=== PATIENT | male | born 1940 | race Caucasian/White ===

== ENCOUNTER → 2021-10-31 15:35 | Outpatient (BNVA) | payer MEDICARE, SELFPAY | PROVIDERS: PCP Internal Medicine; Visit Provider Surgery | DX: H93.90 Unspecified disorder of ear, unspecified ear (principal) | CPT/HCPCS: 99202 ==

== ENCOUNTER 2021-11-14 11:45 | Outpatient (REF) | payer MEDICARE, SELFPAY ==
[2021-11-14 11:57] VITALS: BP 143/67; PULSE 88; RESP 16; TEMP 36.2; O2SAT 96
[2021-11-14 11:58] VITALS: BMI 32.3
--- NOTE | 2021-11-14 12:36 | P.OP_ITS ---
Operative Note Operative Note Date of Service: 11/14/21 Narrative: Preop diagnosis: Right ear skin lesion Postop diagnose: Right ear skin lesion Procedure: Excision of right ear skin lesion, under local anesthesia Surgeon: Sameer Morin MD The patient is a 81year-old male with with an elevated skin lesion on the area behind the right external ear measuring about 1.5 cm. This was lobulated and Smooth. He understood technique of excision under local anesthesia. He was aw are of the risks, benefits, and alternatives Brought to the minor procedure room. He was placed supine with the head turned to the left to expose the anteriorly to expose the posterior surface and the lesion. This area was prepped and draped. Lidocaine 1% was used for local anesthesia. I made an elliptical incision around this skin lesion using a blade 15. This was carried down through the full-thickness skin and part of subcutaneous layer to excise the entire skin lesion. This was sent as specimen. I closed the incision with multiple Prolene 4-0 interrupted sutures. There was good hemostasis at the end. Dressings were applied. The procedure was then completed. The patient tolerated procedure well. There were no complication noted. He will be seen in the office for follow-up for removal of sutures.
[2021-11-14 12:37] VITALS: BP 121/63; PULSE 77; RESP 16; O2SAT 95
== END 2021-11-14 11:46 | disposition home or self-care (01) ==
LOC: HO.MS 11:45
PROVIDERS: PCP Internal Medicine; Visit Provider Surgery
PROC: (CPT 11442; principal; 2021-11-14 12:10)
DX: L91.8 Other hypertrophic disorders of the skin (principal); L82.1 Other seborrheic keratosis
CPT/HCPCS: 11442; 88305

== ENCOUNTER → 2021-11-28 08:46 | Outpatient (BNVA) | payer MEDICARE, SELFPAY | PROVIDERS: PCP Internal Medicine; Visit Provider Surgery | DX: Z09 Encounter for follow-up examination after completed treatment for conditions other than malignant neoplasm (principal); Z87.2 Personal history of diseases of the skin and subcutaneous tissue | CPT/HCPCS: 99212 ==

== ENCOUNTER 2023-01-28 07:34 | Emergency (ER) | payer MEDICARE, SELFPAY ==
--- NOTE | ~2023-01-28 | XR_ITS ---
EXAMINATION: XR CHEST CLINICAL INFORMATION: Shortness of breath COMPARISON: Previous chest x-ray January 2020 TECHNIQUE: Frontal view of the chest was obtained. FINDINGS: The cardiac and mediastinal contours are stable. The lungs are clear. No pleural effusion or pneumothorax. Curvature of the lower thoracic spine to the right and degenerative changes. XR/XR chest 1V IMPRESSION: No evidence for acute disease in the chest.
--- NOTE | 2023-01-28 07:35 | ECG_ITS ---
Test Reason : heart palpitations Blood Pressure : / mmHG Vent. Rate : 069 BPM Atrial Rate : 069 BPM P-R Int : 200 ms QRS Dur : 124 ms QT Int : 422 ms P-R-T Axes : 066 045 047 degrees QTc Int : 452 ms Artifact in tracing Normal sinus rhythm Right bundle branch block Abnormal ECG When compared with ECG of 14-FEB-2020 00:37, No significant changes seen Referred By: Generic ED Physician Electronically Signed By:SANDRA LAST
[2023-01-28 07:38] VITALS: BP 126/76; PULSE 75; RESP 16; TEMP 36.1; O2SAT 94; BMI 32.6
--- NOTE | 2023-01-28 08:02 | ED.GENADULT ---
HPI - General Adult General Chief complaint: General Medical Stated complaint: Heart palpitations Time Seen by Provider: 01/28/23 08:01 Source: patient and family (daughter) Mode of arrival: ambulatory Limitations: no limitations History of Present Illness HPI narrative: Patient is an 82 year old assigned male at with a history of BPH, HTN, and coronary disease presenting to the emergency department today with intermittent palpitations and increased worry. Patient states that lately, he has been feeling more excited and feeling palpitations. Patient states that he has a trip to [place] coming up today and that has been concerning him. Patient denies any dizziness, lightheadedness, abdominal pain, nausea, vomiting, fever, chills, blurry vision, double vision, loss of vision, chest pain, difficulty breathing, shortness of breath, back pain, night sweats, pain with urination, increased urinary frequency, increased urinary urgency, blood in his urine or stool, syncope or a near syncopal episode, recent trauma or falls, bowel incontinence, bladder incontinence, bowel retention, bladder retention, or any other complaints at this time. Onset (ago): week(s) (1) Severity: mild Relieving factors: none Exacerbating factors: none Associated symptoms: denies other symptoms Treatments prior to arrival: none Related Data Home Medications Medication Instructions Recorded Confirmed enalapril maleate 2.5 mg tablet 2.5 mg PO DAILY 10/31/21 10/31/21 metoprolol tartrate 25 mg tablet 25 mg PO BID 10/31/21 10/31/21 omeprazole 40 mg capsule,delayed 40 mg PO DAILY 10/31/21 10/31/21 release pravastatin 80 mg tablet 80 mg PO DAILY 10/31/21 10/31/21 tamsulosin 0.4 mg capsule 0.4 mg PO DAILY 10/31/21 10/31/21 Allergies Allergy/AdvReac Type Severity Reaction Status Date / Time codeine [CODEINE] Allergy Severe UNKNOWN Verified 11/28/21 08:56 atorvastatin [From LIPITOR] AdvReac Intermediate Muscle Verified 11/28/21 08:56 cramps doxycycline [DOXYCYCLINE] AdvReac Intermediate Gastrointestinal Verified 11/28/21 08:56 Upset Review of Systems Constitutional: Constitutional: Reports no additional constitutional complaints, Denies chills, Denies fever(s) and Denies night sweats Eyes: Eyes: Reports no additional eye complaints, Denies blurry vision, Denies change in vision, Denies diplopia, Denies eye discharge, Denies loss of vision and Denies eye pain ENT: Denies dizziness Cardiovascular: Cardiovascular: Reports no additional cardiovascular complaints, Denies chest pain, Denies lightheadedness, Denies Loss of Consciousness, Reports palpitations and Denies dyspnea Respiratory: Respiratory: Reports no additional respiratory complaints and Denies dyspnea Gastrointestinal: Gastrointestinal: Reports no additional gastrointestinal complaints, Denies abdominal pain, Denies melena, Denies hematochezia, Denies change in bowel habits and Denies change in stool character Genitourinary: Genitourinary: Reports no additional male genitourinary complaints, Denies hematuria, Denies oliguria, Denies difficulty urinating, Denies dysuria, Denies urinary frequency, Denies urinary hesitancy, Denies urinary incontinence and Denies urinary urgency Musculoskeletal: Musculoskeletal: Reports no additional musculoskeletal complaints, Denies numbness and Denies tingling Neurologic: Denies dizziness, Denies loss of vision, Denies numbness and Denies tingling Psychiatric: Psychiatric: Reports no additional psychiatric complaints Endocrine: Endocrine: Reports no additional endocrine complaints and Reports palpitations Hematologic/Lymphatic: Hematologic/Lymphatic: Reports no additional hematologic/lymphatic complaints Allergic/Immunologic: Allergic/Immunologic: Reports no additional allergic/immunologic complaints PMFSH Past Medical History Attestation statement: The following information was validated with the patient. (all information validated with the patient's daughter) Source: old records reviewed, obtained from family (patient's daughter) and nursing notes reviewed Medical History BPH (benign prostatic hyperplasia) Coronary disease Ear lesion Hyperlipidemia Hypertension Surgical History History of cataract surgery History of heart artery stent History of prostate surgery (~2011) History of surgical removal of skin lesion (~11/14/21) Family History Family History Father Lung cancer Sister Colon cancer Mother Cancer of kidney Social History Social History Advance Directives: Yes Advance Directives Information Provided: Yes Advance Directives on File: No Physical Exam ED Vital Signs: Vital Signs - 24 hr 01/28/23 07:38 01/28/23 09:58 01/28/23 11:47 Temperature 96.9 F 97.8 F Pulse Rate 75 55 58 Respiratory Rate 16 15 18 Blood Pressure 126/76 103/44 L 98/32 L Pulse Oximetry 94 93 96 Oxygen Delivery Method Room Air Room Air Room Air BMI result Body Mass Index 32.6 Const General: cooperative, no acute distress, alert and awake Nutritional Appearance: well nourished Orientation/consciousness: patient oriented x3 Limitations: no limitations HENMT Head: Yes normal to inspection and Yes atraumatic Ears: hearing grossly normal bilaterally and external ears normal General nose exam: Normal external nose present, no nasal discharge noted and no epistaxis Face and sinus: Yes normal facial exam, No abrasion and No laceration Mouth: Normal oral and palatal mucosa present, no drooling and no muffled voice Eyes General: appearance normal, both eyes and all related structures Periorbital: periorbital findings normal Eyelids: Yes eyelids normal Conjunctivae: conjunctivae normal Pupils: Equal, round and reactive pupils present EOM: EOMs intact bilaterally Neck Neck: Yes normal visual inspection, Yes full ROM and Yes no lymphadenopathy Chest Chest palpation & inspection: normal inspection of the chest Resp Effort & Inspection: normal respiratory effort and able to speak in complete sentences Auscultation: clear to auscultation bilaterally Cardio Rate: regular rate Rhythm: regular rhythm GI Inspection: Yes normal to inspection Palpation (GI): Soft to palpation, not firm, nontender, no guarding and not rigid Neuro General: patient oriented x3 and moves all extremities Cranial nerves: Yes Equal, round and reactive pupils present Cognition (Neuro): normal cognition Motor exam (neuro): 5/5 motor strength present throughout Sensory Exam: Normal double simultaneous stimulation for sensation Coordination: [id number] test normal Extrem General: Yes normal to inspection, Yes full ROM and Yes capillary refill normal Psych Appearance: grossly normal Mental Status: mental status grossly normal Affect: normal affect Attitude: cooperative Thought process: Normal thought process present Thought content: Normal thought content present Insight: Good insight present (Psych) Medical Decision Making Medical Decision Making MDM Narrative: Patient is an 82 year old assigned male at with a history of HTN, BPH, and coronary disease presenting to the emergency department today with intermittent palpitations. Patient's physical exam was unremarkable. Patient's blood work was unremarkable. Patient's EKG was unremarkable. Patient's chest x-ray showed no acute process. I explained my physical exam findings as well as all test results to the patient and the patient's daughter. I answered all questions asked by the patient and the patient's daughter. I stressed the importance of the patient taking his medication as prescribed. I stressed the importance of the patient following up with his primary care provider. I stressed the importance of the patient returning to the emergency department immediately if his symptoms were to worsen or if he were to develop any dizziness, shortness of breath, difficulty breathing, chest pain, blurry vision, loss of vision, nausea, vomiting, abdominal pain, fever, chills, back pain, or any other complaints. Patient and the patient's daughter verbalized agreement and understanding with this treatment plan and discharge. Differential Diagnosis Differential Diagnoses: The differential diagnosis associated with the presentation includes palpitations, anxiety Admission/Observation Consideration of admission/observation: Escalation of care including admission/observation considered Had patient's work up been positive for a cardiopulmonary process, he would have been admitted. Lab Data MDM Lab Attestation statement: I reviewed the patient's lab results. 01/28/23 08:05 01/28/23 08:09 Labs: Lab Results 01/28/23 01/28/23 01/28/23 Range/Units 08:05 08:05 08:05 WBC 6.5 (4.8-10.8) X10*3/uL RBC 5.55 (4.60-5.80) X10*6/uL Hgb 16.7 (14.0-18.0) g/dl Hct 49.6 (42.0-52.0) % MCV 89.4 (80.0-98.0) fL MCH 30.1 (27.0-33.0) pg MCHC 33.7 (31.0-36.0) g/dl RDW 13.1 (11.0-16.0) % Plt Count 147 L (160-400) X10*3/uL MPV 10.2 (9.4-12.4) fL Immature Gran % (Auto) 0.3 (0.0-0.4) % Neut % (Auto) 63.9 (45-73) % Lymph % (Auto) 25.1 (20-40) % [place] % (Auto) 8.7 (2-11) % Eos % (Auto) 1.5 (0-4) % Baso % (Auto) 0.5 (0-2) % Lymph # (Auto) 1.6 (1.2-4.9) X10*3/uL [place] # (Auto) 0.6 (0.1-1.2) X10*3/uL Eos # (Auto) 0.1 (0.0-0.4) X10*3/uL Baso # (Auto) 0.0 (0.0-0.2) X10*3/uL Abs Immat Gran (auto) 0.02 (0.00-0.03) X10*3/uL Absolute Neuts (auto) 4.2 (2.0-8.3) x10*3/uL Absolute Nucleated RBC 0.000 (0.0-0.012) X10*3/uL Nucleated RBC % (auto) 0.0 (0.0-0.2) /100WBC PT 12.0 (10.0-13.1) SEC INR 1.0 (0.9-1.1) APTT (26.0-36.4) SEC Sodium (135-145) mmol/L Potassium (3.3-5.1) mmol/L Chloride (96-108) mmol/L Carbon Dioxide (22-29) mmol/L Anion Gap (12-20) BUN (9-16) mg/dL Creatinine (0.5-1.4) mg/dL Estim Creat Clear Calc Estimated GFR POC Glucose (60-115) mg/dL Random Glucose (60-115) mg/dL Calcium (8.4-10.2) mg/dL Total Bilirubin (0.0-1.0) mg/dL AST (5-37) U/L ALT (0-40) U/L Alkaline Phosphatase (39-117) U/L Troponin I High Sens 2.7 (<3.5-35.0) ng/L B-Natriuretic Peptide (<100) pg/mL Total Protein (6.5-8.0) g/dL Albumin (3.5-5.0) g/dL Influenza Type A (PCR) (Negative) Influenza Type B (PCR) (Negative) RSV RNA Qual (PCR) (Negative) SARS-CoV-2 RNA (RT-PCR) (Negative) 01/28/23 01/28/23 01/28/23 Range/Units 08:05 08:05 08:09 WBC (4.8-10.8) X10*3/uL RBC (4.60-5.80) X10*6/uL Hgb (14.0-18.0) g/dl Hct (42.0-52.0) % MCV (80.0-98.0) fL MCH (27.0-33.0) pg MCHC (31.0-36.0) g/dl RDW (11.0-16.0) % Plt Count (160-400) X10*3/uL MPV (9.4-12.4) fL Immature Gran % (Auto) (0.0-0.4) % Neut % (Auto) (45-73) % Lymph % (Auto) (20-40) % [place] % (Auto) (2-11) % Eos % (Auto) (0-4) % Baso % (Auto) (0-2) % Lymph # (Auto) (1.2-4.9) X10*3/uL [place] # (Auto) (0.1-1.2) X10*3/uL Eos # (Auto) (0.0-0.4) X10*3/uL Baso # (Auto) (0.0-0.2) X10*3/uL Abs Immat Gran (auto) (0.00-0.03) X10*3/uL Absolute Neuts (auto) (2.0-8.3) x10*3/uL Absolute Nucleated RBC (0.0-0.012) X10*3/uL Nucleated RBC % (auto) (0.0-0.2) /100WBC PT (10.0-13.1) SEC INR (0.9-1.1) APTT 32.2 (26.0-36.4) SEC Sodium 141 (135-145) mmol/L Potassium 4.3 (3.3-5.1) mmol/L Chloride 108 (96-108) mmol/L Carbon Dioxide 24 (22-29) mmol/L Anion Gap 13 (12-20) BUN 16 (9-16) mg/dL Creatinine 1.49 H (0.5-1.4) mg/dL Estim Creat Clear Calc 47.5 Estimated GFR 45 POC Glucose (60-115) mg/dL Random Glucose 191 H (60-115) mg/dL Calcium 9.1 (8.4-10.2) mg/dL Total Bilirubin 1.3 H (0.0-1.0) mg/dL AST 21 (5-37) U/L ALT 17 (0-40) U/L Alkaline Phosphatase 78 (39-117) U/L Troponin I High Sens (<3.5-35.0) ng/L B-Natriuretic Peptide (<100) pg/mL Total Protein 6.1 L (6.5-8.0) g/dL Albumin 3.9 (3.5-5.0) g/dL Influenza Type A (PCR) NEGATIVE (Negative) Influenza Type B (PCR) NEGATIVE (Negative) RSV RNA Qual (PCR) NEGATIVE (Negative) SARS-CoV-2 RNA (RT-PCR) NEGATIVE (Negative) 01/28/23 01/28/23 Range/Units 08:09 08:22 WBC (4.8-10.8) X10*3/uL RBC (4.60-5.80) X10*6/uL Hgb (14.0-18.0) g/dl Hct (42.0-52.0) % MCV (80.0-98.0) fL MCH (27.0-33.0) pg MCHC (31.0-36.0) g/dl RDW (11.0-16.0) % Plt Count (160-400) X10*3/uL MPV (9.4-12.4) fL Immature Gran % (Auto) (0.0-0.4) % Neut % (Auto) (45-73) % Lymph % (Auto) (20-40) % [place] % (Auto) (2-11) % Eos % (Auto) (0-4) % Baso % (Auto) (0-2) % Lymph # (Auto) (1.2-4.9) X10*3/uL [place] # (Auto) (0.1-1.2) X10*3/uL Eos # (Auto) (0.0-0.4) X10*3/uL Baso # (Auto) (0.0-0.2) X10*3/uL Abs Immat Gran (auto) (0.00-0.03) X10*3/uL Absolute Neuts (auto) (2.0-8.3) x10*3/uL Absolute Nucleated RBC (0.0-0.012) X10*3/uL Nucleated RBC % (auto) (0.0-0.2) /100WBC PT (10.0-13.1) SEC INR (0.9-1.1) APTT (26.0-36.4) SEC Sodium (135-145) mmol/L Potassium (3.3-5.1) mmol/L Chloride (96-108) mmol/L Carbon Dioxide (22-29) mmol/L Anion Gap (12-20) BUN (9-16) mg/dL Creatinine (0.5-1.4) mg/dL Estim Creat Clear Calc Estimated GFR POC Glucose 184 H (60-115) mg/dL Random Glucose (60-115) mg/dL Calcium (8.4-10.2) mg/dL Total Bilirubin (0.0-1.0) mg/dL AST (5-37) U/L ALT (0-40) U/L Alkaline Phosphatase (39-117) U/L Troponin I High Sens (<3.5-35.0) ng/L B-Natriuretic Peptide 16 (<100) pg/mL Total Protein (6.5-8.0) g/dL Albumin (3.5-5.0) g/dL Influenza Type A (PCR) (Negative) Influenza Type B (PCR) (Negative) RSV RNA Qual (PCR) (Negative) SARS-CoV-2 RNA (RT-PCR) (Negative) Independent Interpretation I performed an independent interpretation of an: EKG and Plain X-Ray Interpretation: Vent. Rate: 069 BPM ? ? Atrial Rate: 069 BPM P-R Int: 200 ms? QRS Dur: 124 ms QT Int: 422 ms ? ? ? P-R-T Axes: 066 045 047 degrees QTc Int: 452 ms ? Sinus rhythm with Fusion complexes Right bundle branch block Abnormal ECG When compared with ECG of 14-FEB-2020 00:37, Fusion complexes are now Present DD/ [id number] My interpretation is in agreement with the radiologist's impression of this imaging study. EXAMINATION: XR CHEST CLINICAL INFORMATION: Shortness of breath COMPARISON: Previous chest x-ray January 2020 TECHNIQUE: Frontal view of the chest was obtained. FINDINGS: The cardiac and mediastinal contours are stable. The lungs are clear. No pleural effusion or pneumothorax. Curvature of the lower thoracic spine to the right and degenerative changes. XR/XR chest 1V IMPRESSION: No evidence for acute disease in the chest. ? Dictated By: Roxie Dee MD Signed By: Electronically signed by Roxie Dee MD 01/28/23 0919 Independent Historian Clinical information obtained from an independent historian. History obtained from or confirmed by: Other (patient's daughter) Discharge Plan Discharge Clinical Impression: Palpitation Patient Disposition: Home, Self-Care Instructions: Heart Palpitations (DC) Additional Instructions: Follow up with your primary care provider. Return to the emergency department immediately if your symptoms worsen or if you develop any dizziness, shortness of breath, difficulty breathing, chest pain, blurry vision, loss of vision, nausea, vomiting, abdominal pain, fever, chills, back pain, or any other complaints. Prescriptions: No Action metoprolol tartrate 25 mg tablet 25 mg PO BID omeprazole 40 mg capsule,delayed release(DR/EC) 40 mg PO DAILY pravastatin 80 mg tablet 80 mg PO DAILY tamsulosin 0.4 mg capsule 0.4 mg PO DAILY enalapril maleate 2.5 mg tablet 2.5 mg PO DAILY Referrals: Sameer Banegas MD [Primary Care Provider] - Interventions: ED Discharge Assessment Last Done: 01/28/23 12:30 Discharge Date/Time: 01/28/23 12:37 Print Language: Romansh
[2023-01-28 08:14] LABS: MANUAL DIFF FLAG NO
[2023-01-28 08:19] LABS: Basophils Percent Auto 0.5 % (0-2); Eosinophils Absolute Auto 0.1 X10*3/uL (0.0-0.4); Eosinophils Percent Auto 1.5 % (0-4); Hematocrit 49.6 % (42.0-52.0); Hemoglobin 16.7 g/dl (14.0-18.0); Imm Gran Abs Auto 0.02 X10*3/uL (0.00-0.03); Imm Gran Pct Auto 0.3 % (0.0-0.4); Lymphocytes Absolute Auto 1.6 X10*3/uL (1.2-4.9); Lymphocytes Percent Auto 25.1 % (20-40); Mean Corpuscular HGB Conc 33.7 g/dl (31.0-36.0); Mean Corpuscular Hemoglobin 30.1 pg (27.0-33.0); Mean Corpuscular Volume 89.4 fL (80.0-98.0); Mean Platelet Volume 10.2 fL (9.4-12.4); Monocytes Absolute Auto 0.6 X10*3/uL (0.1-1.2); Monocytes Percent Auto 8.7 % (2-11); Neutrophils Absolute Auto 4.2 x10*3/uL (2.0-8.3); Neutrophils Percent Auto 63.9 % (45-73); Platelet Count 147 X10*3/uL (160-400); Red Blood Count 5.55 X10*6/uL (4.60-5.80); Red Cell Distribution Width 13.1 % (11.0-16.0); White Blood Count 6.5 X10*3/uL (4.8-10.8)
[2023-01-28 08:23] LABS: Partial Thromboplastin Time 32.2 SEC (26.0-36.4)
--- NOTE | 2023-01-28 08:23 | MHC.EDTECH ---
POC of 184 completed and RN aware
[2023-01-28 08:27] LABS: Glucose, Whole Blood 184 mg/dL (60-115)
[2023-01-28 08:36] LABS: Troponin-I High Sensitivity 2.7 ng/L (<3.5-35.0)
[2023-01-28 08:49] LABS: B Type Natriuretic Peptide 16 pg/mL (<100)
[2023-01-28 09:55] LABS: Influenza A PCR NEGATIVE (Negative); Influenza B PCR NEGATIVE (Negative); Resp Syncy Virus RNA Qual PCR NEGATIVE (Negative); SARS COV2 PCR INHOUSE NEGATIVE (Negative)
[2023-01-28 09:58] VITALS: BP 103/44; PULSE 55; RESP 15; O2SAT 93
[2023-01-28 11:47] VITALS: BP 98/32; PULSE 58; RESP 18; TEMP 36.6; O2SAT 96
[2023-01-28 11:59] LABS: Alanine Aminotransferase 17 U/L (0-40); Albumin Level 3.9 g/dL (3.5-5.0); Alkaline Phosphatase 78 U/L (39-117); Anion Gap 13 (12-20); Aspartate Amino Transferase 21 U/L (5-37); Bilirubin Total 1.3 mg/dL (0.0-1.0); Blood Urea Nitrogen 16 mg/dL (9-16); Calcium 9.1 mg/dL (8.4-10.2); Carbon Dioxide 24 mmol/L (22-29); Chloride 108 mmol/L (96-108); Creatinine Clr Calc Pharmacy 47.5; Estimated Glomerular Filt Rate 45; Glucose Random 191 mg/dL (60-115); Potassium 4.3 mmol/L (3.3-5.1); Sodium 141 mmol/L (135-145); Total Protein 6.1 g/dL (6.5-8.0)
== END 2023-01-28 12:37 | disposition home or self-care (01) ==
PROVIDERS: Physician Assistant Medical; Emergency Provider Emergency Medicine; PCP Internal Medicine
DX: R00.2 Palpitations (principal); Z20.822 Contact with and (suspected) exposure to COVID-19; I45.10 Unspecified right bundle-branch block; I10 Essential (primary) hypertension; E78.5 Hyperlipidemia, unspecified; Z79.02 Long term (current) use of antithrombotics/antiplatelets; Z79.899 Other long term (current) drug therapy
CPT/HCPCS: 0241U; 36415; 71045; 80053; 82947; 83880; 84484; 85025; 85610; 85730; 93005; 99283

== ENCOUNTER 2023-02-03 08:37 | Outpatient (REF) | payer MEDICARE, SELFPAY ==
[2023-02-03 11:52] LABS: Estimated Average Glucose 163 mg/dL; Hemoglobin A1c % 7.3 %
[2023-02-03 12:04] LABS: Anion Gap 12 (12-20); Blood Urea Nitrogen 21 mg/dL (9-16); Calcium 8.8 mg/dL (8.4-10.2); Carbon Dioxide 30 mmol/L (22-29); Chloride 102 mmol/L (96-108); Estimated Glomerular Filt Rate 40; Glucose Random 145 mg/dL (60-115); Magnesium 1.6 mg/dL (1.6-2.6); Potassium 4.5 mmol/L (3.3-5.1); Sodium 139 mmol/L (135-145)
[2023-02-03 12:05] LABS: Creatinine Urine 63.06 mg/dL; Total Protein Urine Random < 7 mg/dL (<12)
[2023-02-03 12:10] LABS: Creatinine Urine 62.89 mg/dL; Microalbum/Creatinine Ratio Ur 17.4 ug/mg cr
[2023-02-03 12:20] LABS: Free T4 (Free Thyroxine) 0.91 ng/dL (0.71-1.85)
== END 2023-02-03 08:38 | disposition home or self-care (01) ==
LOC: HO.WFDLDS 08:37
PROVIDERS: Absent Provider Internal Medicine; Visit Provider Internal Medicine Nephrology
DX: I12.9 Hypertensive chronic kidney disease with stage 1 through stage 4 chronic kidney disease, or unspecified chronic kidney disease (principal); E11.22 Type 2 diabetes mellitus with diabetic chronic kidney disease; N18.31 Chronic kidney disease, stage 3a; R00.2 Palpitations
CPT/HCPCS: 36415; 80048; 82043; 83036; 83735; 84156; 84439; 84443

== ENCOUNTER 2023-05-30 11:28 | Outpatient (REF) | payer MEDICARE, SELFPAY ==
[2023-05-30 15:00] LABS: Estimated Average Glucose 151 mg/dL; Hemoglobin A1c % 6.9 % (<6.0)
[2023-05-30 15:09] LABS: Anion Gap 13 (12-20); Blood Urea Nitrogen 14 mg/dL (9-16); Calcium 9.6 mg/dL (8.4-10.2); Carbon Dioxide 25 mmol/L (22-29); Chloride 106 mmol/L (96-108); Estimated Glomerular Filt Rate 48; Glucose Random 119 mg/dL (60-115); Potassium 4.1 mmol/L (3.3-5.1); Sodium 140 mmol/L (135-145)
== END 2023-05-30 11:29 | disposition home or self-care (01) ==
LOC: HO.WFDLDS 11:28
PROVIDERS: Visit Provider Internal Medicine
DX: E11.22 Type 2 diabetes mellitus with diabetic chronic kidney disease (principal); I12.9 Hypertensive chronic kidney disease with stage 1 through stage 4 chronic kidney disease, or unspecified chronic kidney disease; N18.9 Chronic kidney disease, unspecified
CPT/HCPCS: 36415; 80048; 83036

== ENCOUNTER 2023-09-25 11:08 | Outpatient (REF) | payer MEDICARE, SELFPAY | END 2023-09-25 11:09 | disposition home or self-care (01) | LOC: HO.WFDLDS 11:08 | PROVIDERS: Visit Provider Internal Medicine | DX: Z13.89 Encounter for screening for other disorder (principal) ==

== ENCOUNTER 2023-09-25 11:29 | Outpatient (REF) | payer MEDICARE, SELFPAY | END 2023-09-25 11:30 | disposition home or self-care (01) | LOC: HO.WFDLDS 11:29 | PROVIDERS: Visit Provider Internal Medicine Nephrology | DX: N18.30 Chronic kidney disease, stage 3 unspecified (principal) | CPT/HCPCS: 36415; 80051; 80053; 82043; 82306; 82310; 82565; 82570; 83036; 84100; 84156; 84520; 85025 ==

== ENCOUNTER 2023-10-01 09:34 | Outpatient (AMB) | payer MEDICARE, SELFPAY ==
[2023-10-01 09:55] VITALS: BP 102/60; PULSE 66; BMI 31.2
--- NOTE | 2023-10-01 09:55 | HO.NEPHOV ---
HPI HPI Comments History of Present Illness Details Sourav is a 83-year-old delightful gentleman whom had the pleasure of seeing in follow-up of his chronic kidney disease. He has lost some weight. He is tolerating all his current medications including enalapril. He is on metformin and his blood sugar is better. He denies nausea vomiting, diarrhea, chest pain, shortness of breath, pedal edema, dizziness or orthostatic symptoms. He tries to maintain good hydration. All other systems were reviewed and were negative. [facility] Medical History BPH (benign prostatic hyperplasia) Coronary disease Ear lesion Hyperlipidemia Hypertension Surgical History History of surgical removal of skin lesion (~11/14/21) History of cataract surgery History of heart artery stent History of prostate surgery (~2011) Family History Father Lung cancer Sister Colon cancer Mother Cancer of kidney Vital Signs 10/01/23 09:55 Height 5 ft 10 in Weight 217 lb 4 oz BMI 31.2 BP 102/60 Blood Pressure Location Lt brachial Position Sitting Pulse 66 Pulse Source Pulse Oximeter Physical Exam Vital Signs: Last Vital Signs Pulse 66 10/01/23 09:55 BP 102/60 10/01/23 09:55 BMI result Body Mass Index 31.2 Const General: comfortable and no acute distress Orientation/consciousness: patient oriented x3 HEENT Head: Yes normocephalic Mouth: Normal oral and palatal mucosa present Eyes EOM: EOMs intact bilaterally Neck Neck: Yes supple Resp Auscultation: clear to auscultation bilaterally Cardio Jugular venous distension: no JVD Rate: regular rate GI Palpation (GI): Soft to palpation Auscultation: normal bowel sounds General: Yes no CVA tenderness Back/Spine/Pelvis Back: no CVA tenderness Skin General skin exam: no rashes or lesions noted Neuro General: patient oriented x3 and moves all extremities Extrem General: Yes no pedal edema Assessment & Plan Assessment & Plan (1) CKD (chronic kidney disease) stage 3, GFR 30-59 ml/min: Code(s): N18.30 - Chronic kidney disease, stage 3 unspecified Qualifiers: Chronic kidney disease stage 3 subtype: stage 3a (GFR 45-59) Qualified Code(s): N18.31 - Chronic kidney disease, stage 3a (2) Hypertension: Code(s): I10 - Essential (primary) hypertension Qualifiers: Hypertension type: primary hypertension Qualified Code(s): I10 - Essential (primary) hypertension Plan Zeferino has chronic kidney disease stage 3 with stable renal function. He has 1 small kidney. He likely has renal artery stenosis on that side given coronary artery disease and history of peripheral arterial disease. He has no significant protein in the urine. His blood pressure is at goal. He is tolerating current dose of enalapril. He avoids nonsteroidal anti-inflammatory medications and maintain good hydration. We could consider him for a low-dose Farxiga given history of coronary artery disease, CKD and diabetes. I did not make any medication changes today. No prescription refills were requested. All questions answered. Follow-up given. Orders: Orders Protein Creatinine Ratio, Ur Today I10 - Essential (primary) hypertension, N18.30 - Chronic kidney disease, stage 3 unspecified Creatinine Today I10 - Essential (primary) hypertension, N18.30 - Chronic kidney disease, stage 3 unspecified Electrolytes Today I10 - Essential (primary) hypertension, N18.30 - Chronic kidney disease, stage 3 unspecified Blood Urea Nitrogen Today I10 - Essential (primary) hypertension, N18.30 - Chronic kidney disease, stage 3 unspecified Coding Level of Care Code Est Pt Level 4 (02766) Diagnoses Stage 3a chronic kidney disease N18.31 Chronic kidney disease stage 3 subtype: stage 3a (GFR 45-59) Primary hypertension I10 Hypertension type: primary hypertension Results Reviewed Nephrology Results: Hgb 16.2 g/dl (14.0-18.0) 09/25/23 WBC 7.0 X10*3/uL (4.8-10.8) 09/25/23 Plt Count 133 X10*3/uL (160-400) L 09/25/23 Sodium 143 mmol/L (135-145) 09/25/23 Potassium 3.9 mmol/L (3.3-5.1) 09/25/23 Chloride 104 mmol/L (96-108) 09/25/23 Carbon Dioxide 28 mmol/L (22-29) 09/25/23 BUN 13 mg/dL (9-16) 09/25/23 Creatinine 1.26 mg/dL (0.5-1.4) 09/25/23 Calcium 9.4 mg/dL (8.4-10.2) 09/25/23 Phosphorus 2.6 mg/dL (2.7-4.5) L 09/25/23 Urine Protein TRACE (NEG - TRACE) 02/14/20 Urine Creatinine 71.80 mg/dL 09/25/23 Protein/Creatinin Ratio 0.17 (<0.2) 09/25/23
== END 2023-10-01 10:42 | disposition home or self-care (01) ==
PROVIDERS: PCP Internal Medicine; Visit Provider Internal Medicine Nephrology
DX: N18.31 Chronic kidney disease, stage 3a (principal); I10 Essential (primary) hypertension
CPT/HCPCS: 99214

== ENCOUNTER → 2023-10-01 09:34 | Outpatient (BNVA) | payer MEDICARE, SELFPAY | PROVIDERS: PCP Internal Medicine; Visit Provider Internal Medicine Nephrology | DX: I12.9 Hypertensive chronic kidney disease with stage 1 through stage 4 chronic kidney disease, or unspecified chronic kidney disease (principal); N18.31 Chronic kidney disease, stage 3a | CPT/HCPCS: 99212 ==

== ENCOUNTER 2024-02-02 10:41 | Outpatient (REF) | payer MEDICARE, SELFPAY ==
[2024-02-02 14:59] LABS: Estimated Average Glucose 140 mg/dL; Hemoglobin A1c % 6.5 % (<6.0)
[2024-02-02 15:07] LABS: Creatinine Urine 102.12 mg/dL; Creatinine Urine 102.38 mg/dL; Microalbum/Creatinine Ratio Ur 88.8 ug/mg cr (<30); Protein/Creatinine Ratio, Ur 0.22 (<0.2); Total Protein Urine Random 22 mg/dL (<12)
[2024-02-02 15:08] LABS: Anion Gap 12 (12-20); Blood Urea Nitrogen 14 mg/dL (9-16); Carbon Dioxide 31 mmol/L (22-29); Chloride 104 mmol/L (96-108); Estimated Glomerular Filt Rate 56; Potassium 4.3 mmol/L (3.3-5.1); Sodium 143 mmol/L (135-145)
[2024-02-02 15:11] LABS: Anion Gap 12 (12-20); Blood Urea Nitrogen 14 mg/dL (9-16); Calcium 9.5 mg/dL (8.4-10.2); Carbon Dioxide 31 mmol/L (22-29); Chloride 104 mmol/L (96-108); Estimated Glomerular Filt Rate 56; Glucose Random 138 mg/dL (60-115); Potassium 4.3 mmol/L (3.3-5.1); Sodium 143 mmol/L (135-145)
== END 2024-02-02 10:42 | disposition home or self-care (01) ==
LOC: HO.WFDLDS 10:41
PROVIDERS: Internal Medicine; Visit Provider Internal Medicine Nephrology
DX: E11.9 Type 2 diabetes mellitus without complications (principal); N18.30 Chronic kidney disease, stage 3 unspecified; I10 Essential (primary) hypertension
CPT/HCPCS: 36415; 80048; 80051; 82043; 82565; 82570; 83036; 84156; 84520

== ENCOUNTER 2024-02-11 08:25 | Outpatient (REF) | payer MEDICARE, SELFPAY | END 2024-02-11 08:26 | disposition home or self-care (01) | LOC: HO.SH 08:25 | PROVIDERS: Visit Provider Internal Medicine | DX: Z01.118 Encounter for examination of ears and hearing with other abnormal findings (principal); H90.3 Sensorineural hearing loss, bilateral | CPT/HCPCS: 92557 ==

== ENCOUNTER 2024-04-21 11:44 | Outpatient (AMB) | payer MEDICARE, SELFPAY ==
[2024-04-21 11:47] VITALS: BP 122/78; PULSE 76; O2SAT 96; BMI 31.6
--- NOTE | 2024-04-21 11:47 | HO.NEPHOV_ITS ---
Vital Signs 04/21/24 11:47 Height 5 ft 10 in Weight 220 lb BMI 31.6 BP 122/78 Blood Pressure Location Rt brachial Position Sitting Pulse 76 Pulse Source Pulse Oximeter Pulse Oximetry (%) 96 Oxygen Delivery Method Room Air Intake Visit Reasons: CKD/ Conf Ring Stamper Required: No Accompanied by: Self / Same As Patient Allergies codeine [CODEINE] Allergy (Severe, Verified 04/21/24 11:49) UNKNOWN atorvastatin [From LIPITOR] Adverse Reaction (Intermediate, Verified 04/21/24 11:49) Muscle cramps doxycycline [DOXYCYCLINE] Adverse Reaction (Intermediate, Verified 04/21/24 11:49) Gastrointestinal Upset HPI Comments Details: Sourav is a 83-year-old delightful gentleman whom had the pleasure of seeing in follow-up of his chronic kidney disease. He has lost some weight. He is tolerating all his current medications including enalapril. He is on metformin and his blood sugar is better. He denies nausea vomiting, diarrhea, chest pain, shortness of breath, pedal edema, dizziness or orthostatic symptoms. He tries to maintain good hydration. All other systems were reviewed and were negative [facility] Medical History BPH (benign prostatic hyperplasia) Coronary disease Ear lesion Hyperlipidemia Hypertension Surgical History History of surgical removal of skin lesion (~11/14/21) History of cataract surgery History of heart artery stent History of prostate surgery (~2011) Family History Father Lung cancer Sister Colon cancer Mother Cancer of kidney Review of Systems Const All systems reviewed & are unremarkable except as noted in HPI and below Physical Exam Vital Signs: Last Vital Signs Pulse 76 04/21/24 11:47 BP 122/78 04/21/24 11:47 Pulse Ox 96 04/21/24 11:47 Oxygen Delivery Method Room Air 04/21/24 11:47 BMI result Body Mass Index 31.6 Const General: comfortable and no acute distress Orientation/consciousness: patient oriented x3 HEENT Head: Yes normocephalic Mouth: Normal oral and palatal mucosa present Eyes EOM: EOMs intact bilaterally Neck Neck: Yes supple Resp Auscultation: clear to auscultation bilaterally Cardio Jugular venous distension: no JVD Rate: regular rate GI Palpation (GI): Soft to palpation Auscultation: normal bowel sounds General: Yes no CVA tenderness Back/Spine/Pelvis Back: no CVA tenderness Skin General skin exam: no rashes or lesions noted Neuro General: patient oriented x3 and moves all extremities Extrem General: Yes no pedal edema Results Reviewed Nephrology Results: Hgb 16.2 g/dl (14.0-18.0) 09/25/23 WBC 7.0 X10*3/uL (4.8-10.8) 09/25/23 Plt Count 133 X10*3/uL (160-400) L 09/25/23 Sodium 143 mmol/L (135-145) 02/02/24 Potassium 4.3 mmol/L (3.3-5.1) 02/02/24 Chloride 104 mmol/L (96-108) 02/02/24 Carbon Dioxide 31 mmol/L (22-29) H 02/02/24 BUN 14 mg/dL (9-16) 02/02/24 Creatinine 1.23 mg/dL (0.5-1.4) 02/02/24 Calcium 9.5 mg/dL (8.4-10.2) 02/02/24 Phosphorus 2.6 mg/dL (2.7-4.5) L 09/25/23 Urine Creatinine 102.38 mg/dL 02/02/24 Protein/Creatinin Ratio 0.22 (<0.2) H 02/02/24 Assessment & Plan Assessment & Plan (1) CKD (chronic kidney disease) stage 3, GFR 30-59 ml/min: Code(s): N18.30 - Chronic kidney disease, stage 3 unspecified Category: Medical Qualifiers: Chronic kidney disease stage 3 subtype: stage 3a (GFR 45-59) Qualified Code(s): N18.31 - Chronic kidney disease, stage 3a (2) Hypertension: Code(s): I10 - Essential (primary) hypertension Category: Medical Qualifiers: Hypertension type: primary hypertension Qualified Code(s): I10 - Essential (primary) hypertension Plan Bill has chronic kidney disease stage 3 with stable renal function. He has 1 small kidney. He likely has renal artery stenosis on that side given coronary artery disease and history of peripheral arterial disease. He has no significant protein in the urine. His blood pressure is at goal. He is tolerating current dose of enalapril. He avoids nonsteroidal anti-inflammatory medications and maintain good hydration. We could consider him for a low-dose Farxiga given history of coronary artery disease, CKD and diabetes. I did not make any medication changes today. No prescription refills were requested. All questions answered. Follow-up given. Orders: Orders Creatinine Today I10 - Essential (primary) hypertension, N18.31 - Chronic kidney disease, stage 3a Blood Urea Nitrogen Today I10 - Essential (primary) hypertension, N18.31 - Chronic kidney disease, stage 3a Electrolytes Today I10 - Essential (primary) hypertension, N18.31 - Chronic kidney disease, stage 3a Coding Level of Care Code Est Pt Level 4 (99822) Diagnoses Stage 3a chronic kidney disease N18.31 Chronic kidney disease stage 3 subtype: stage 3a (GFR 45-59) Primary hypertension I10 Hypertension type: primary hypertension
== END 2024-04-21 12:10 | disposition home or self-care (01) ==
PROVIDERS: PCP Internal Medicine; Visit Provider Internal Medicine Nephrology
DX: N18.31 Chronic kidney disease, stage 3a (principal); I10 Essential (primary) hypertension
CPT/HCPCS: 99214

== ENCOUNTER → 2024-04-21 11:44 | Outpatient (BNVA) | payer MEDICARE, SELFPAY | PROVIDERS: PCP Internal Medicine; Visit Provider Internal Medicine Nephrology | DX: I12.9 Hypertensive chronic kidney disease with stage 1 through stage 4 chronic kidney disease, or unspecified chronic kidney disease (principal); N18.31 Chronic kidney disease, stage 3a | CPT/HCPCS: 99212 ==

== ENCOUNTER 2024-05-10 11:26 | Outpatient (REF) | payer MEDICARE, SELFPAY ==
[2024-05-10 14:17] LABS: MANUAL DIFF FLAG NO
[2024-05-10 14:28] LABS: Basophils Percent Auto 0.5 % (0-2); Eosinophils Absolute Auto 0.1 X10*3/uL (0.0-0.4); Eosinophils Percent Auto 1.6 % (0-4); Hematocrit 49.6 % (42.0-52.0); Hemoglobin 16.3 g/dl (14.0-18.0); Imm Gran Abs Auto 0.03 X10*3/uL (0.00-0.03); Imm Gran Pct Auto 0.4 % (0.0-0.4); Lymphocytes Absolute Auto 1.7 X10*3/uL (1.2-4.9); Mean Corpuscular HGB Conc 32.9 g/dl (31.0-36.0); Mean Corpuscular Hemoglobin 29.9 pg (27.0-33.0); Mean Platelet Volume 10.5 fL (9.4-12.4); Monocytes Absolute Auto 0.6 X10*3/uL (0.1-1.2); Monocytes Percent Auto 8.3 % (2-11); Neutrophils Absolute Auto 4.9 x10*3/uL (2.0-8.3); Neutrophils Percent Auto 66.2 % (45-73); Platelet Count 145 X10*3/uL (160-400); Red Blood Count 5.45 X10*6/uL (4.60-5.80); Red Cell Distribution Width 13.6 % (11.0-16.0); White Blood Count 7.5 X10*3/uL (4.8-10.8)
[2024-05-10 14:42] LABS: Estimated Average Glucose 146 mg/dL; Hemoglobin A1c % 6.7 % (<6.0)
[2024-05-10 14:43] LABS: Appearance Urine Clear; Color Urine Yellow; Glucose Urine UA Negative (Negative); Leukocyte Esterase Urine Trace (Negative); Nitrite Urine Negative (Negative); PH 6.5 (5.0-9.0); Specific Gravity - Urine 1.015 (1.005-1.025); UMIC TRIGGER UA YES; Urine Blood Negative (Negative); Urine Ketones Negative (Negative); Urine Protein 30 (1+) mg/dL (Neg-Trace)
[2024-05-10 14:49] LABS: Bacteria Urine None Seen (None Seen); Hyaline Casts Urine 0-2 /LPF (0-2); RBC Urine 0-2 /HPF (0-2); Squamous Epithelial Cell Urine 0-2 /HPF (0-2); WBC Urine 0-5 /HPF (0-5)
[2024-05-10 14:55] LABS: Creatinine Urine 129.61 mg/dL; Microalbum/Creatinine Ratio Ur 174.3 ug/mg cr (<30)
[2024-05-10 14:58] LABS: Alanine Aminotransferase 15 U/L (0-40); Albumin Level 3.8 g/dL (3.5-5.0); Alkaline Phosphatase 72 U/L (39-117); Anion Gap 15 (12-20); Aspartate Amino Transferase 21 U/L (5-37); Bilirubin Total 0.6 mg/dL (0.0-1.0); Blood Urea Nitrogen 13 mg/dL (9-16); Carbon Dioxide 25 mmol/L (22-29); Chloride 104 mmol/L (96-108); Cholesterol 161 mg/dL (<200); Estimated Glomerular Filt Rate 50; Glucose Fasting 138 mg/dL (60-99); HDL Cholesterol 38 mg/dL (>40); LDL Cholesterol Calculated 85 mg/dL (<100); Potassium 4.1 mmol/L (3.3-5.1); Sodium 140 mmol/L (135-145); Total Protein 6.8 g/dL (6.5-8.0); Triglycerides 191 mg/dL (<150)
[2024-05-10 15:05] LABS: Prostate Specific Antigen Scr 0.73 ng/mL (<0.05-4.0)
[2024-05-10 15:06] LABS: Vitamin D 25-OH Total 59.1 ng/mL (>30)
== END 2024-05-10 11:27 | disposition home or self-care (01) ==
LOC: HO.WFDLDS 11:26
PROVIDERS: Visit Provider Internal Medicine
DX: I25.10 Atherosclerotic heart disease of native coronary artery without angina pectoris (principal); I12.9 Hypertensive chronic kidney disease with stage 1 through stage 4 chronic kidney disease, or unspecified chronic kidney disease; E78.00 Pure hypercholesterolemia, unspecified; E11.22 Type 2 diabetes mellitus with diabetic chronic kidney disease; N18.9 Chronic kidney disease, unspecified; N40.0 Benign prostatic hyperplasia without lower urinary tract symptoms; E55.9 Vitamin D deficiency, unspecified; Z12.5 Encounter for screening for malignant neoplasm of prostate
CPT/HCPCS: 36415; 80053; 80061; 81001; 82043; 82306; 82570; 83036; 84153; 85025

== ENCOUNTER 2024-10-25 10:47 | Outpatient (REF) | payer MEDICARE, SELFPAY ==
--- OUTSIDE RECORDS SUMMARY | 2024-10-25 11:44 | XMS_ITS | Clinical Summary ---
Author Organization [facility] Address [address] [place] [address] Phone Care Team Providers Care Dental Intern Name Role Phone Sameer Banegas MD Primary Care Provider [phone] Allergies Active Allergy Reactions Criticality Noted Date Comments Atorvastatin Other (see comments) 07/17/2022 muscle aches Codeine Other (see comments) 02/28/2021 Doxycycline Other (see comments) 02/28/2021 Medications aspirin (ST ALIVIA) 81 MG EC tablet Take 1 tablet by mouth 2 (two) times a day Active Cholecalciferol 50 MCG (2000 UT) capsule Take 1 capsule by mouth 1 (one) time each day Active enalapril (VASOTEC) 2.5 MG tablet Take 1 tablet by mouth every night 12/10/2013 Active Krill Oil (Ridge-3) 500 MG capsule Take 1 capsule by mouth 2 (two) times a day Active metoprolol tartrate (LOPRESSOR) 25 MG tablet Take 0.5 tablets by mouth 2 (two) times a day 09/19/2014 Active omeprazole (PriLOSEC) [address] capsule Take 1 capsule by mouth 1 (one) time each day Active pravastatin (PRAVACHOL) 80 MG tablet Take 1 tablet by mouth 1 (one) time each day Active tamsulosin (FLOMAX) 0.4 MG 24 hr capsule Take 1 capsule by mouth every night Active Active Problems Problem Noted Date Diagnosed Date Benign hypertensive renal disease 02/28/2021 Stage 3a chronic kidney disease 02/28/2021 Hypertension 02/28/2021 Immunizations Name Administration Dates Next Due Pneumococcal Polysaccharide 12/10/2013 Family History Medical History Relation Comments Cancer Father Hypertension Father Stroke Father Relation Status Comments Father Mother Social History Tobacco Use Types Packs/Day Years Used Date Smoking Tobacco: Never Smokeless Tobacco: Never Tobacco Cessation:Counseling Given: Not Answered Alcohol Use Standard Drinks/Week Comments Yes 0 (1 standard drink = 0.6 oz pure alcohol) Alcoholic Drinks/day: Occasional social drink Sex and Gender Information Value Date Recorded Sex Assigned at Not on file Legal Sex Male 5:08 PM EST Gender Identity Not on file Sexual Orientation Not on file Last Filed Vital Signs Vital Sign Reading Time Taken Comments Blood Pressure 110/70 04/16/2023 2:35 PM EDT Pulse 72 07/17/2022 3:53 PM EDT Temperature - - Respiratory Rate - - Oxygen Saturation 97% 08/29/2021 2:11 PM EST Inhaled Oxygen Concentration - - Weight 104 kg (228 lb 12.8 oz) 04/16/2023 2:35 P M EDT Height 175.3 cm (5' 9 ) 03/08/2020 12:00 PM EDT Body Mass Index 33.79 03/08/2020 12:00 PM EDT Plan of Treatment Health Maintenance Due Date Last Done Comments Pneumococcal Vaccine: 65+ Ye ars (2 of 2 - PCV) 12/10/2014 12/10/2013 Influenza Vaccine (#1) 2024 Hepatitis B Vaccine Aged Out No longe r eligible based on patient's age to complete this topic Insurance [facility] MEDICARE [facility] Care Teams Dental Intern Relationship Specialty Start Date End Date Sameer Banegas MD [address] [place] PCP - General 10/02/20
[2024-10-25 14:11] LABS: MANUAL DIFF FLAG NO
[2024-10-25 14:19] LABS: Basophils Percent Auto 0.4 % (0-2); Eosinophils Absolute Auto 0.1 X10*3/uL (0.0-0.4); Eosinophils Percent Auto 1.3 % (0-4); Hematocrit 46.5 % (42.0-52.0); Hemoglobin 15.7 g/dl (14.0-18.0); Imm Gran Abs Auto 0.01 X10*3/uL (0.00-0.03); Imm Gran Pct Auto 0.1 % (0.0-0.4); Lymphocytes Absolute Auto 1.7 X10*3/uL (1.2-4.9); Lymphocytes Percent Auto 21.4 % (20-40); Mean Corpuscular HGB Conc 33.8 g/dl (31.0-36.0); Mean Corpuscular Hemoglobin 30.4 pg (27.0-33.0); Mean Corpuscular Volume 89.9 fL (80.0-98.0); Mean Platelet Volume 11.2 fL (9.4-12.4); Monocytes Absolute Auto 0.7 X10*3/uL (0.1-1.2); Monocytes Percent Auto 8.7 % (2-11); Neutrophils Absolute Auto 5.4 x10*3/uL (2.0-8.3); Neutrophils Percent Auto 68.1 % (45-73); Platelet Count 142 X10*3/uL (160-400); Red Blood Count 5.17 X10*6/uL (4.60-5.80); Red Cell Distribution Width 13.3 % (11.0-16.0)
[2024-10-25 14:22] LABS: Basophils Percent Auto 0.4 % (0-2); Eosinophils Absolute Auto 0.1 X10*3/uL (0.0-0.4); Eosinophils Percent Auto 1.3 % (0-4); Hematocrit 46.5 % (42.0-52.0); Hemoglobin 15.7 g/dl (14.0-18.0); Imm Gran Abs Auto 0.01 X10*3/uL (0.00-0.03); Imm Gran Pct Auto 0.1 % (0.0-0.4); Lymphocytes Absolute Auto 1.7 X10*3/uL (1.2-4.9); Lymphocytes Percent Auto 21.4 % (20-40); Mean Corpuscular HGB Conc 33.8 g/dl (31.0-36.0); Mean Corpuscular Hemoglobin 30.4 pg (27.0-33.0); Mean Corpuscular Volume 89.9 fL (80.0-98.0); Mean Platelet Volume 11.2 fL (9.4-12.4); Monocytes Absolute Auto 0.7 X10*3/uL (0.1-1.2); Monocytes Percent Auto 8.7 % (2-11); Neutrophils Absolute Auto 5.4 x10*3/uL (2.0-8.3); Neutrophils Percent Auto 68.1 % (45-73); Platelet Count 142 X10*3/uL (160-400); Red Blood Count 5.17 X10*6/uL (4.60-5.80); Red Cell Distribution Width 13.3 % (11.0-16.0)
[2024-10-25 14:29] LABS: Estimated Average Glucose 137 mg/dL; Hemoglobin A1C 192.1211 umol/L; Hemoglobin A1c % 6.4 % (<6.0); Total Hemoglobin (HGBA1C) 4177.6637 umol/L
[2024-10-25 14:55] LABS: Vitamin D 25-OH Total 65.3 ng/mL (>30)
[2024-10-25 14:58] LABS: Calcium 9.1 mg/dL (8.4-10.2); Phosphorus 2.1 mg/dL (2.7-4.5)
[2024-10-25 15:02] LABS: Alanine Aminotransferase 12 U/L (0-40); Albumin Level 3.8 g/dL (3.5-5.0); Anion Gap 11 (12-20); Aspartate Amino Transferase 25 U/L (5-37); Bilirubin Total 0.5 mg/dL (0.0-1.0); Blood Urea Nitrogen 17 mg/dL (9-16); Calcium 9.1 mg/dL (8.4-10.2); Carbon Dioxide 27 mmol/L (22-29); Chloride 106 mmol/L (96-108); Estimated Glomerular Filt Rate 56; Glucose Random 119 mg/dL (60-115); Potassium 4.4 mmol/L (3.3-5.1); Sodium 140 mmol/L (135-145); Total Protein 6.7 g/dL (6.5-8.0)
[2024-10-25 15:10] LABS: Parathyroid Hormone Intact 129.6 pg/mL (8.7-77.1)
[2024-10-25 16:45] LABS: Alkaline Phosphatase 73 U/L (39-117)
== END 2024-10-25 10:48 | disposition home or self-care (01) ==
LOC: HO.WFDLDS 10:47
PROVIDERS: Internal Medicine; Visit Provider Internal Medicine Nephrology
DX: I10 Essential (primary) hypertension (principal); E11.9 Type 2 diabetes mellitus without complications; N18.9 Chronic kidney disease, unspecified; N40.0 Benign prostatic hyperplasia without lower urinary tract symptoms; I25.10 Atherosclerotic heart disease of native coronary artery without angina pectoris
CPT/HCPCS: 36415; 80053; 82306; 82310; 83036; 83970; 84100; 85025

== ENCOUNTER 2024-10-26 14:19 | Outpatient (REF) | payer MEDICARE, SELFPAY ==
--- OUTSIDE RECORDS SUMMARY | 2024-10-26 14:27 | XMS_ITS | Clinical Summary ---
Author Organization [facility] Address [address] [place] [address] Phone Care Team Providers Care Building Operator Name Role Phone Sameer Banegas MD Primary Care Provider [phone] Allergies Active Allergy Reactions Criticality Noted Date [...] mouth every night 12/10/2013 Active Krill Oil ([place]-3) 500 MG capsule Take 1 capsule by [...] patient's age to complete this topic Insurance [facility] MEDICARE [facility] MEDICARE Care Teams Building Operator Relationship Specialty Start Date End Date Sameer Banegas MD [id number] [place] PCP - General 10/02/20
[2024-10-26 14:36] LABS: Appearance Urine Clear; Color Urine Yellow; Glucose Urine UA Negative (Negative); Leukocyte Esterase Urine Negative (Negative); Nitrite Urine Negative (Negative); Urine Blood Negative (Negative); Urine Ketones Negative (Negative); Urine Protein Negative (Neg-Trace)
[2024-10-26 14:58] LABS: Creatinine Urine 69.01 mg/dL; Protein/Creatinine Ratio, Ur 0.14 (<0.2); Total Protein Urine Random 10 mg/dL (<12)
[2024-10-26 14:59] LABS: Creatinine Urine 71.46 mg/dL; Microalbum/Creatinine Ratio Ur 44.7 ug/mg cr (<30)
== END 2024-10-26 14:20 | disposition home or self-care (01) ==
LOC: HO.LNP 14:19
PROVIDERS: Internal Medicine Nephrology; Visit Provider Internal Medicine
DX: I10 Essential (primary) hypertension (principal); E11.9 Type 2 diabetes mellitus without complications; N40.0 Benign prostatic hyperplasia without lower urinary tract symptoms; N18.9 Chronic kidney disease, unspecified
CPT/HCPCS: 81003; 82043; 82570; 84156

== ENCOUNTER 2024-10-27 13:43 | Outpatient (AMB) | payer MEDICARE, SELFPAY ==
--- NOTE | 2024-10-27 13:51 | HO.NEPHOV_ITS ---
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 He has lost some weight. He is tolerating all his current medications including enalapril. He is on metformin and his blood sugar is better. He denies nausea vomiting, diarrhea, chest pain, shortness of breath, pedal edema, dizziness or orthostatic symptoms. He tries to maintain good hydration. All other systems were reviewed and were negative [facility] Medical History BPH (benign prostatic hyperplasia) Coronary disease Ear lesion Hyperlipidemia Hypertension Surgical History History of surgical removal of skin lesion (~11/14/21) History of cataract surgery History of heart artery stent History of prostate surgery (~2011) Family History Father Lung cancer Sister Colon cancer Mother Cancer of kidney Review of Systems Const All systems reviewed & are unremarkable except as noted in HPI and below Physical Exam Vital Signs: Last Vital Signs Pulse 73 10/27/24 13:52 BP 120/60 10/27/24 13:52 Pulse Ox 93 10/27/24 13:52 Oxygen Delivery Method Room Air 10/27/24 13:52 BMI result Body Mass Index 30.8 Const General: comfortable and no acute distress Orientation/consciousness: patient oriented x3 HEENT Head: Yes normocephalic Mouth: Normal oral and palatal mucosa present Eyes EOM: EOMs intact bilaterally Neck Neck: Yes supple Resp Auscultation: clear to auscultation bilaterally Cardio Jugular venous distension: no JVD Rate: regular rate GI Palpation (GI): Soft to palpation Auscultation: normal bowel sounds General: Yes no CVA tenderness Back/Spine/Pelvis Back: no CVA tenderness Skin General skin exam: no rashes or lesions noted Neuro General: patient oriented x3 and moves all extremities Extrem General: Yes no pedal edema Results Reviewed Nephrology Results: Hgb 15.7 g/dl (14.0-18.0) 10/25/24 WBC 8.0 X10*3/uL (4.8-10.8) 10/25/24 Plt Count 142 X10*3/uL (160-400) L 10/25/24 Sodium 140 mmol/L (135-145) 10/25/24 Potassium 4.4 mmol/L (3.3-5.1) 10/25/24 Chloride 106 mmol/L (96-108) 10/25/24 Carbon Dioxide 27 mmol/L (22-29) 10/25/24 BUN 17 mg/dL (9-16) H 10/25/24 Creatinine 1.24 mg/dL (0.5-1.4) 10/25/24 Calcium 9.1 mg/dL (8.4-10.2) 10/25/24 Phosphorus 2.1 mg/dL (2.7-4.5) L 10/25/24 PTH Intact 129.6 pg/mL (8.7-77.1) H 10/25/24 Urine Protein Negative mg/dL (Neg-Trace) 10/26/24 Urine Creatinine 71.46 mg/dL 10/26/24 Protein/Creatinin Ratio 0.14 (<0.2) 10/26/24 Assessment & Plan Assessment & Plan (1) CKD (chronic kidney disease) stage 3, GFR 30-59 ml/min: Code(s): N18.30 - Chronic kidney disease, stage 3 unspecified Category: Medical Qualifiers: Chronic kidney disease stage 3 subtype: stage 3a (GFR 45-59) Qualified Code(s): N18.31 - Chronic kidney disease, stage 3a (2) Hypertension: Code(s): I10 - Essential (primary) hypertension Category: Medical Qualifiers: Hypertension type: primary hypertension Qualified Code(s): I10 - Essential (primary) hypertension Plan Bill has chronic kidney disease stage 3 with stable renal function. He has 1 small kidney. He likely has renal artery stenosis on that side given coronary artery disease and history of peripheral arterial disease. He has no significant protein in the urine. His blood pressure is at goal. He is tolerating current dose of enalapril. He avoids nonsteroidal anti-inflammatory medications and maintain good hydration. We could consider him for a low-dose Farxiga given history of coronary artery disease, CKD and diabetes. I did not make any medication changes today. No prescription refills were requested. All questions answered. Follow-up given. Coding Level of Care Code Est Pt Level 4 (59209) Diagnoses Stage 3a chronic kidney disease N18.31 Chronic kidney disease stage 3 subtype: stage 3a (GFR 45-59) Primary hypertension I10 Hypertension type: primary hypertension
[2024-10-27 13:52] VITALS: BP 120/60; PULSE 73; O2SAT 93; BMI 30.8
--- OUTSIDE RECORDS SUMMARY | 2024-10-27 15:05 | XMS_ITS | Clinical Summary ---
Author Organization [facility] Address [address] [place] [address] Phone Care Team Providers Care Anesthesiologist/Physician Name Role Phone Sameer Banegas MD Primary Care Provider [phone] Allergies Active Allergy Reactions Criticality Noted Date [...] mouth every night 12/10/2013 Active Krill Oil (Cadet-3) 500 MG capsule Take 1 capsule by [...] patient's age to complete this topic Insurance [facility] MEDICARE [facility] MEDICARE Care Teams Anesthesiologist/Physician Relationship Specialty Start Date End Date Sameer Banegas MD [address] [place] PCP - General 10/02/20
== END 2024-10-27 14:14 | disposition home or self-care (01) ==
PROVIDERS: PCP Internal Medicine; Visit Provider Internal Medicine Nephrology
DX: N18.31 Chronic kidney disease, stage 3a (principal); I10 Essential (primary) hypertension
CPT/HCPCS: 99214

== ENCOUNTER → 2024-10-27 13:43 | Outpatient (BNVA) | payer MEDICARE, SELFPAY | PROVIDERS: PCP Internal Medicine; Visit Provider Internal Medicine Nephrology | DX: I12.9 Hypertensive chronic kidney disease with stage 1 through stage 4 chronic kidney disease, or unspecified chronic kidney disease (principal); N18.31 Chronic kidney disease, stage 3a | CPT/HCPCS: 99212 ==

== ENCOUNTER 2025-01-27 08:48 | Outpatient (AMB) | payer MEDICARE, SELFPAY ==
[2025-01-27 08:45] VITALS: BP 120/76; PULSE 76; TEMP 36.6; O2SAT 96; BMI 31.0
--- NOTE | 2025-01-27 08:45 | MHC.PC.OV ---
Vital Signs 01/27/25 08:45 Height 5 ft 10 in Weight 216 lb BMI 31.0 BP 120/76 Blood Pressure Location Lt brachial Position Sitting Pulse 76 Pulse Source Pulse Oximeter Temp 97.9 F Temp Source Axillary Pulse Oximetry (%) 96 Oxygen Delivery Method Room Air Intake Visit Reasons: Routine Dye House Hand Required: No Accompanied by: Self / Same As Patient Allergies codeine [CODEINE] Allergy (Severe, Verified 01/27/25 08:45) UNKNOWN atorvastatin [From LIPITOR] Adverse Reaction (Intermediate, Verified 01/27/25 08:45) Muscle cramps doxycycline [DOXYCYCLINE] Adverse Reaction (Intermediate, Verified 01/27/25 08:45) Gastrointestinal Upset Tobacco use date assessed: 01/27/25 Fall risk assessment: 1 Fall in past year Last assessed Fall Risk: 01/27/25 Dental Screening Dental Screen Date: 01/27/25 Did you have a dental visit in the last 12 months?: Yes Did you have a dental problem in the last 6 months where you did not have access to dental care?: No HPI HPI Comments History of Present Illness Details Sourav is a 84-year-old male with a past medical history of diabetes, CAD, CKD, hypertension, GERD, Barretts, colon polyps, BPH presenting for follow up. Last seen by PCP in July Diabetes: On metformin 500mg daily daily. CKD followed by Dr Garcia. Last seen in October CV: On enalapril, metoprolol, pravastatin. BP is well controlled GI: On omeprazole 40mg daily. BPH: On tamsulosin 0.4mg daily. Following with dermatology q6 months Recent COVID infection. Seen at [facility] urgent care. Starting to feel better. Does not need further colonoscopy. Was following with [facility] GI ROS CONSTITUTIONAL: Denies weight loss, fever and chills. HEENT: Denies changes in vision and hearing. RESPIRATORY: Denies SOB and cough. CV: Denies palpitations and CP GI: Denies abdominal pain, nausea, vomiting and diarrhea. : Denies dysuria and urinary frequency. MSK: Denies new myalgia and joint pain. SKIN: Denies rash and pruritus. NEUROLOGICAL: Denies headache PSYCHIATRIC: Denies recent changes in mood. PHYSICAL EXAM: GENERAL: Alert and oriented x 3. NAD EYES: EOMI. Anicteric. HENT: Moist mucous membranes. No scleral icterus. No cervical lymphadenopathy. LUNGS: Clear to auscultation bilaterally. CARDIOVASCULAR: Regular rate and rhythm. No murmur. No JVD. ABDOMEN: Soft, non-tender +bs EXTREMITIES: No edema. Non-tender. SKIN: No rashes or lesions. Warm. NEUROLOGIC: No focal neurological deficits. CN II-XII grossly intact PSYCHIATRIC: Cooperative. Appropriate mood and affect PENDING SALE TO [facility] Medical History Ear lesion Hyperlipidemia BPH (benign prostatic hyperplasia) Coronary disease Hypertension Surgical History History of colonoscopy (~06/11/17) History of surgical removal of skin lesion (~11/14/21) History of cataract surgery History of heart artery stent History of prostate surgery (~2011) Family History Father Lung cancer Sister Colon cancer Mother Cancer of kidney Social History Housing: House Patient Tobacco Use Status: Former Tobacco user e-Cigarette/Vaping Use: Former Use service: No Current occupational status: retired Cognitive needs: No Hearing needs: Yes (bilateral hearing aids) Vision needs: Yes (reading glasses) Questionnaire PHQ-9 Over the last 2 weeks, how often have you been bothered by any of the following problems? 1. Little interest or pleasure in doing things: not at all 2. Feeling down, depressed, or hopeless: not at all 3. Trouble falling or staying asleep, or sleeping too much: not at all 4. Feeling tired or having little energy: not at all 5. Poor appetite or overeating: not at all 6. Feeling bad about yourself - or that you are a failure or have let yourself or your family down: not at all 7. Trouble concentrating on things, such as reading the newspaper or watching television: not at all 8. Moving or speaking so slowly that other people could have noticed. Or the opposite - being so fidgety or restless that you have been moving around a lot more than usual: not at all 9. Thoughts that you would be better off or of hurting yourself in some way: not at all Total score: 0 Depression Screening Interpretation: Negative Depression Screening Done: Yes 11487 - PHQ-9 Billing: Yes Source: Developed by Drs. Brady Ross, Marcia Diaz, Jalil oSler and colleagues, with an educational flip from [employer]. Thrive Questionnaire Date Thrive assessed: 01/27/25 I am a: Patient Within the past 12 months, did the food you bought not last and you didn't have the money to get more?: Never true Within the past 12 months, did you worry whether your food would run out before you got money to buy more?: Never true Do you have trouble paying for medicines?: No Do you have trouble getting transportation to medical appointments?: No Do you have trouble paying your heating and electricity bill?: No Do you have trouble taking care of your child, family member or friend?: No Do you have trouble with day-to-day activities such as bathing, preparing meals, shopping, managing finances, etc.?: No Are you currently unemployed and looking for a job?: No Are you interested in more education?: No THRIVE Score: 0 AUDIT C Alcohol Use Questionnaire (AUDIT-C) 1. How often do you have a drink containing alcohol?: Monthly or less 2. How many drinks containing alcohol do you have on a typical day when you are drinking?: 1 or 2 3. How often do you have six or more drinks on one occasion?: Less than monthly Total Score: 2 JOSE LUIS-7 AMB Questionnaire JOSE LUIS-7 Date JOSE LUIS - 7 assessed: 01/27/25 Feeling nervous, anxious, or on edge: 0 = Not at all Not being able to stop or control worryin = Not at all Worrying too much about different things: 0 = Not at all Trouble relaxin = Not at all Being so restless that it is hard to sit still: 0 = Not at all Becoming easily annoyed or irritable: 0 = Not at all Feeling afraid as if something awful might happen: 0 = Not at all Total JOSE LUIS-7 score (0-4 normal; 5-9 mild; 10-14 moderate; 15-21 severe): 0 Source: Developed by Marcia Garcia Kurt Kroenke and colleagues, with an educational flip from [employer]. Physical exam (Primary Care) Vital Signs: Last Vital Signs Temp 97.9 F 01/27/25 08:45 Pulse 76 01/27/25 08:45 BP 120/76 01/27/25 08:45 Pulse Ox 96 01/27/25 08:45 Oxygen Delivery Method Room Air 01/27/25 08:45 BMI result Body Mass Index 31.0 Tobacco/Smoking Status: Tobacco use Status Tobacco use date assessed 01/27/25 01/27/25 08:47 Patient Tobacco Use Status Former Tobacco user 01/27/25 08:58 e-Cigarette/Vaping Use Former Use 01/27/25 08:58 PHQ-9: PHQ-9 Score PHQ-9: Total score 0 01/27/25 08:58 Depression Screening Interpretation: Negative Thrive Assessment: Date of Thrive Assessment Date Thrive assessed 01/27/25 01/27/25 08:47 Coding Level of Care Code New Pt Level 4 (59944) Complex EM visit Add On G2211 Diagnoses Type 2 diabetes mellitus with diabetic microalbuminuria, 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; R80.9 Diabetes mellitus type: type 2 Diabetes mellitus lobsterman insulin use: without lobsterman use Diabetes mellitus complication status: with kidney complications Diabetes mellitus complication detail: with diabetic microalbuminuria Stage 3a chronic kidney disease N18.31 Chronic kidney disease stage 3 subtype: stage 3a (GFR 45-59) Primary hypertension I10 Hypertension type: primary hypertension Coronary artery disease involving [place] coronary artery without angina pectoris, unspecified whether [place] or transplanted heart I25.10 Coronary Disease-Associated Artery/Lesion type: [place] artery Stebbins vs. transplanted heart: unspecified whether [place] or transplanted heart Associated angina: without angina Additional Codes PHQ-9 - 24022 - PHQ-9 Billing: Yes ([id number]) Assessment & Plan Assessment & Plan (1) Diabetes mellitus: Code(s): E11.9 - Type 2 diabetes mellitus without complications Category: Medical Qualifiers: Diabetes mellitus type: type 2 Diabetes mellitus nursing home insulin use: without nursing home use Diabetes mellitus complication status: with kidney complications Diabetes mellitus complication detail: with diabetic microalbuminuria Qualified Code(s): E11.29 - Type 2 diabetes mellitus with other diabetic kidney complication; R80.9 - Proteinuria, unspecified (2) CKD (chronic kidney disease) stage 3, GFR 30-59 ml/min: Code(s): N18.30 - Chronic kidney disease, stage 3 unspecified Category: Medical Qualifiers: Chronic kidney disease stage 3 subtype: stage 3a (GFR 45-59) Qualified Code(s): N18.31 - Chronic kidney disease, stage 3a (3) Hypertension: Code(s): I10 - Essential (primary) hypertension Category: Medical Qualifiers: Hypertension type: primary hypertension Qualified Code(s): I10 - Essential (primary) hypertension (4) Coronary disease: Code(s): I25.10 - Atherosclerotic heart disease of [place] coronary artery without angina pectoris Category: Medical Qualifiers: Coronary Disease-Associated Artery/Lesion type: [place] artery [place]bbins vs. transplanted heart: unspecified whether [place] or transplanted heart Associated angina: without angina Qualified Code(s): I25.10 - Atherosclerotic heart disease of [place] coronary artery without angina pectoris Plan 84 year old to establish care Past medical surgical social reviewed Diabetes is well controlled on current medication CKD-followed by dr garcia BPH-stable on current medications Orders: Orders Hemoglobin A1c Today E78.5 - Hyperlipidemia, unspecified, I10 - Essential (primary) hypertension, N18.31 - Chronic kidney disease, stage 3a Comprehensive Met. Panel Today E78.5 - Hyperlipidemia, unspecified, I10 - Essential (primary) hypertension, N18.31 - Chronic kidney disease, stage 3a Comprehensive Met. Panel 3 Months E11.9 - Type 2 diabetes mellitus without complications, I10 - Essential (primary) hypertension, I25.10 - Atherosclerotic heart disease of [place] coronary artery without angina pectoris, N18.31 - Chronic kidney disease, stage 3a Lipid Panel 3 Months E11.9 - Type 2 diabetes mellitus without complications, I10 - Essential (primary) hypertension, I25.10 - Atherosclerotic heart disease of [place] coronary artery without angina pectoris, N18.31 - Chronic kidney disease, stage 3a Hemoglobin A1c 3 Months E11.9 - Type 2 diabetes mellitus without complications, I10 - Essential (primary) hypertension, I25.10 - Atherosclerotic heart disease of [place] coronary artery without angina pectoris, N18.31 - Chronic kidney disease, stage 3a
--- OUTSIDE RECORDS SUMMARY | 2025-01-27 09:09 | XMS_ITS | Clinical Summary ---
Author Organization [facility] Address [address] [place] [address] Phone Care Team Providers Care Blower And Compressor Assembler Name Role Phone Sameer Banegas MD Primary Care Provider [phone] Allergies Active Allergy Reactions Criticality Noted Date [...] mouth every night 12/10/2013 Active Krill Oil ([place]-3) 500 MG capsule Take 1 capsule by [...] chronic kidney disease 02/28/2021 Hypertension 02/28/2021 Immunizations Immunization Administration Dates Next Due Pneumococcal Polysaccharide 12/10/2013 [...] Due Date Last Done Comments Pneumococcal Vaccine: 50+ Ye ars (2 of 2 - PCV) 12/10/2014 12/10/2013 Influenza Vaccine (Season Ended) 2025 Pneumococcal Vaccine: Peds ( 0 to 5 Years) and At-Risk Patients (6 to 49 Years) Discontinued 12/10/2013 Hepatitis B Vaccine Aged Out No longe r eligible based on patient's age to complete this topic Insurance [facility] Medicare [facility] Medicare Care Teams Blower And Compressor Assembler Relationship Specialty Start Date End Date Sameer Banegas MD [address] [place] [address] [address]IVE [address] [place], [place] PCP - General 10/02/20
== END 2025-01-27 09:20 | disposition home or self-care (01) ==
LOC: HO.HMCHD 08:49
PROVIDERS: PCP Internal Medicine; Visit Provider Internal Medicine
DX: E11.29 Type 2 diabetes mellitus with other diabetic kidney complication (principal); R80.9 Proteinuria, unspecified; N18.31 Chronic kidney disease, stage 3a; I10 Essential (primary) hypertension; I25.10 Atherosclerotic heart disease of native coronary artery without angina pectoris

== ENCOUNTER → 2025-01-27 08:48 | Outpatient (BNVA) | payer MEDICARE, SELFPAY | PROVIDERS: PCP Internal Medicine; Visit Provider Internal Medicine | DX: Z13.89 Encounter for screening for other disorder (principal) | CPT/HCPCS: 96127; 99202 ==

== ENCOUNTER 2025-01-27 09:24 | Outpatient (REF) | payer MEDICARE, SELFPAY ==
--- OUTSIDE RECORDS SUMMARY | 2025-01-27 10:02 | XMS_ITS | Clinical Summary ---
Author Organization [facility] Address [address] [place] [address] Phone Care Team Providers Care Engine Head Repairer Name Role Phone Sameer Banegas MD Primary Care Provider [phone] Allergies Active Allergy Reactions Criticality Noted Date [...] mouth every night 12/10/2013 Active Krill Oil ([place]-3) 500 MG capsule Take 1 capsule by [...] patient's age to complete this topic Insurance [facility] Medicare [facility] Medicare Care Teams Engine Head Repairer Relationship Specialty Start Date End Date Sameer Banegas MD [address] [place] [address] [address] [place], [place] PCP - General 10/02/20
[2025-01-27 10:24] LABS: Alanine Aminotransferase 18 U/L (0-40); Alkaline Phosphatase 82 U/L (39-117); Anion Gap 12 (12-20); Aspartate Amino Transferase 25 U/L (5-37); Bilirubin Total 0.5 mg/dL (0.0-1.0); Blood Urea Nitrogen 17 mg/dL (9-16); Calcium 9.4 mg/dL (8.4-10.2); Carbon Dioxide 27 mmol/L (22-29); Chloride 105 mmol/L (96-108); Estimated Glomerular Filt Rate 55; Glucose Random 183 mg/dL (60-115); Potassium 4.3 mmol/L (3.3-5.1); Sodium 140 mmol/L (135-145)
[2025-01-27 10:49] LABS: Estimated Average Glucose 140 mg/dL; Hemoglobin A1c % 6.5 % (<6.0); Total Hemoglobin (HGBA1C) 4018.3985 umol/L
== END 2025-01-27 09:25 | disposition home or self-care (01) ==
LOC: HO.10HDL 09:24
PROVIDERS: Visit Provider Internal Medicine
DX: N18.31 Chronic kidney disease, stage 3a (principal); I10 Essential (primary) hypertension; E78.5 Hyperlipidemia, unspecified; Z13.1 Encounter for screening for diabetes mellitus
CPT/HCPCS: 36415; 80053; 83036; 96127; 99202

== ENCOUNTER 2025-05-18 09:07 | Outpatient (REF) | payer MEDICARE, SELFPAY ==
--- OUTSIDE RECORDS SUMMARY | 2025-05-18 09:36 | XMS_ITS | Clinical Summary ---
Author Organization [facility] Address [address] [place] [address] Phone Care Team Providers Care Gunite Nozzle Operator Name Role Phone Sameer Banegas MD Primary Care Provider [phone] Allergies Active Allergy Reactions Criticality Noted Date [...] mouth every night 12/10/2013 Active Krill Oil ([place]-3) 500 MG capsule Take 1 capsule by [...] - PCV) 12/10/2014 12/10/2013 Influenza Vaccine (#1) 2025 Pneumococcal Vaccine: Peds ( 0 to 5 Years) and At-Risk Patients (6 to 49 Years) Discontinued 12/10/2013 Hepatitis B Vaccine Aged Out No longe r eligible based on patient's age to complete this topic Insurance [facility] Medicare [facility] Medicare Care Teams Gunite Nozzle Operator Relationship Specialty Start Date End Date Sameer Banegas MD [address] [place] [address] [address]IVE [address] [place], [place] PCP - General 10/02/20
--- OUTSIDE RECORDS SUMMARY | 2025-05-18 09:36 | XMS_ITS | Clinical Summary ---
Author Organization [facility] Address [address] [place] [address] Phone Care Team Providers Care Director Community Organization Name Role Phone Jeannette Rice MD Primary Care Provider Allergies Active Allergy Reactions Criticality Noted Date Comments Atorvastatin Other (See Comments) 07/17/2022 Other Reaction(s): Muscle involved muscle aches Codeine Hallucinations,Other (See Comments) High 02/28/2021 pt states that codeine makes me feel like I am dying Doxycycline Other (See Comments) 02/28/2021 Medications [id number]- [id number] mg Cap Take 1 capsule by mouth 2 (two) times a day. Active cholecalciferol (VITAMIN D3) 2,000 unit capsule Take 1 capsule by mouth. Active aspirin 81 MG EC tablet Take 1 tablet by mouth 2 (two) times a day. Active enalapril (VASOTEC) 2.5 MG tablet 10/27/2024 Active metFORMIN (GLUCOPHAGE-XR) 500 MG 24 hr tablet 10/27/2024 Active metoprolol tartrate (LOPRESSOR) 25 MG tablet 10/27/2024 Active omeprazole (PRILOSEC) 40 MG capsule Take 1 capsule by mouth. Active pravastatin (PRAVACHOL) 80 MG tablet Take 1 tablet by mouth. Active tamsulosin (FLOMAX) 0.4 mg Cap Take 1 capsule by mouth nightly at bedtime. Active Active Problems No known active problems Social History Tobacco Use Types Packs/Day Years Used Date Smoking Tobacco: Never Assessed Education Answer Date Recorded Are you interested in more education? Not on gordon e 12/21/2024 Are you concerned about learning? Not on file 12/21/2024 No 12/21/2024 No 12/21/2024 Digital Access Answer Date Recorded No 12/21/2024 No 12/21/2024 Reliable internet access at home? Not on file 12/21/2024 Device with a working camera? Not on file Sex and Gender Information Value Date Recorded Sex Assigned at Not on file Legal Sex Male 10:11 PM EDT Gender Identity Not on file Sexual Orientation Not on file Last Filed Vital Signs Vital Sign Reading Time Taken Comments Blood Pressure 130/79 12/21/2024 9:10 AM EDT Pulse 67 12/21/2024 9:10 AM EDT Temperature 37.9 C (100.2 F) 12/21/2024 9:10 AM EDT Respiratory Rate 18 12/21/2024 9:10 AM EDT Oxygen Saturation 95% 12/21/2024 9:10 AM EDT Inhaled Oxygen Concentration - - Weight - - Height - - Body Mass Index - - Plan of Treatment Health Maintenance Due Date Last Done Comments Adult Td,Tdap Booster 1942 CREATININE LEVEL 1942 POTASSIUM LEVEL 1942 DEPRESSION SCREENING 1954 PNEUMOCOCCAL VACCINES (50+ y ears) (1 of 1 - PCV) 1992 ZOSTER VACCINES (1 of 2) 1992 RSV VACCINE (1 - 1-dose 75+ series) 2017 COVID-19 VACCINE ( - 2023-2 5 season) 2024 HEPATITIS A VACCINES Aged Out No long er eligible based on patient's age to complete this topic HIB VACCINES Aged Out No longer eligi ble based on patient's age to complete this topic MENINGOCOCCAL VACCINES (ACWY) Aged Out No longer eligible based on patient's age to complete this topic MENINGOCOCCAL VACCINES (B) Aged Out N o longer eligible based on patient's age to complete this topic Medical Devices Not on file Insurance MEDICARE PART A & B MEDICARE SUPPLEMENT MEDICARE PART A & B [facility] MEDICARE SUPPLEMENT MEDICARE PART A & B MEDICARE SUPPLEMENT MEDICARE PART A & B MEDICARE PART A & B MEDICARE SUPPLEMENT MEDICARE PART A & B MEDICARE SUPPLEMENT MEDICARE PART A & B MEDICARE SUPPLEMENT Member Subscriber Plan / Payer (Ef fective 2024-Present) Name:Sourav Santamaria Relation to Subscriber:Self Name:Sourav Santamaria Payer ID:[id number] (NAIC) Group ID:Not on file Type:HMO Address: [place] [id number] Care Teams Director Community Organization Relationship Specialty Start Date End Date Jeannette Rice MD PCP - General Internal Medicine 12/21/24 Additional Source Comments The information contained in this document represents components of the legal health record. It is not the complete legal health record.[facility]
--- OUTSIDE RECORDS SUMMARY | 2025-05-18 09:36 | XMS_ITS | Patient Health Record ---
Author Organization [facility] Address [address] [place] [address] Care Team Providers Care Negative Checker Name Role Phone Bassam (RETIRED) Sameer PIERRE Primary Care Provide r Brady Poon Unavailable [phone] Allergies Allergen (clinical drug ingredient) Drug/Non Drug Allergy documented on EMR Reaction Allergy Type Onset Date Status codeine Codeine Sulfate Unknown Drug Allergy A ctive Reason For Referral No Information Medications Medication SIG (Take, Route, Frequency, Duration) Notes Start Date End Date Status Aspirin 81 MG 1 tablet Orally Once a day Active Metoprolol Tartrate 25 MG 1 tablet with food Orally Twice a day Active Enalapril Maleate 2.5 MG 1 tablet Orally Once a day Active Atorvastatin Calcium 80 MG 1 tablet Orally Once a day for 30 day(s) Not-Taking Pravastatin Sodium 80 MG 1 tablet Orally Once a day Active Sucralfate 1 GM 10 ml on an empty stomach Orally three times a day started on 02/18/20 Active Omeprazole 40 MG 1 capsule Orally Once a day Active Tamsulosin HCl 0.4 MG 1 capsule Orally Once a day Active Immunizations Vaccine Route Administration Date Status Comme nts Flu vaccine no Preserv 3 and > Unknown 06/05/2016 Admin istered Influenza Unknown 06/22/2019 Administered Social History Tobacco Use: Social History Observation Description Date Details (start date - stop date) Former Smoker NA - NA Tobacco Use/Smoking Question Answer Notes Patient is a former smoker How long has it been since you last smoked? > 10 years Alcohol Screen Question Answer Notes Did you have a drink contain ing alcohol in the past year? Yes How often did you have a dri nk containing alcohol in the past year? Monthly or less (1 point) How many drinks did you have on a typical day when you were drinking in the past year? 1 or 2 drinks (0 point) How often did you have 6 or more drinks on one occasion in the past year? Never (0 point) Points 1 Interpretation Negative Section Notes: He stopped smoking 5 or 6 ye ars ago, and uses only occasional alcohol He stopped smoking 5 or 6 ye ars ago, and uses only occasional alcohol He stopped smoking 5 or 6 ye ars ago, and uses only occasional alcohol Problems Problem Type SNOMED Code ICD Code Onset Dates Problem Status W/U Status Risk Notes Problem 18547380 Epigastric abdom inal pain (R10.13) Active confirmed Problem 239260080 Encounter for screening for malignant neoplasm of colon (Z12.11) Active confirmed Problem 614469282 History of adenomatous polyp of colon (Z86.010) Active confirmed Problem 164068793 Gastroesophageal reflux disease without esophagitis (K21.9) Active confirmed Problem 567844703 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) Active confirmed Problem 248403702 Family history o f colon cancer (Z80.0) Active confirmed Problem 730835688 Long-term use of aspirin therapy (Z79.82) Active confirmed Problem 219725732 Abnormal CT scan , stomach (R93.3) Active confirmed Problem 99730801 Gallbladder slud ge (K82.8) Active confirmed Plan Of Treatment Pending Test Test Name Order Date NUC HIDA SCAN 02/22/2020 Future Test Test Name Order Date UPPER GI ENDOSCOPY 10/17/2011 COLONOSCOPY 10/17/2011 COLONOSCOPY 03/04/2017 UPPER GI ENDOSCOPY 02/22/2020 Insurance Providers Payer Name Payer Address Payer Phone Subscriber Number Group Number Insured Name Patient Relationship to Insured Coverage Start Date Coverage End Date MEDICARE OF [place] [address] [place] [id number] PAULINO ALEXANDER Self - patient is the insured [facility] [employer] [address] [place], [place] [id number] [phone] [id number] PAULINO ALEXANDER Self - patient is the insured Medical (General) History Medical History History ICD Code GERD and Sorensen's esophagus --last EGD in 11/2011--minimal area of Sorensen's--no dysplasia, no esophagitis, small to moderatre-sized hiatal hernia Tubular adenomas--2007; hyperplastic tomasz yp removed in 11/2011--diverticulosis Hyperlipidemia BPH History of DVT and pulmonary embolus Denies DM,CVA,Lung disease,renal disease [place] 2013----1 stent placed---no problems since Colonoscopy 05/2017 with removal of small tubular adenomas U/S 01/2020 with some sludge in the GB, b ut no inflammation CT of abdomen in 01/2020 with question of some proximal gastric wall thickening and gallbladder wall thickening Surgical History Surgery Date(Month/Year) Prostate surgery Arm surgery Oral surgery
[2025-05-18 11:37] LABS: Alanine Aminotransferase 16 U/L (0-40); Albumin Level 4.2 g/dL (3.5-5.0); Alkaline Phosphatase 69 U/L (39-117); Anion Gap 10 (12-20); Aspartate Amino Transferase 27 U/L (5-37); Blood Urea Nitrogen 18 mg/dL (9-16); Calcium 9.2 mg/dL (8.4-10.2); Carbon Dioxide 29 mmol/L (22-29); Chloride 104 mmol/L (96-108); Cholesterol 123 mg/dL (<200); Estimated Glomerular Filt Rate 46; HDL Cholesterol 35 mg/dL (>40); Potassium 4.3 mmol/L (3.3-5.1); Sodium 139 mmol/L (135-145); Total Protein 6.7 g/dL (6.5-8.0); Triglycerides 145 mg/dL (<150)
[2025-05-18 11:50] LABS: Hemoglobin A1C 197.9433 umol/L; Total Hemoglobin (HGBA1C) 4107.7881 umol/L
== END 2025-05-18 09:08 | disposition home or self-care (01) ==
LOC: HO.WFDLDS 09:07
PROVIDERS: Internal Medicine Nephrology; Visit Provider Internal Medicine
DX: E11.22 Type 2 diabetes mellitus with diabetic chronic kidney disease (principal); I12.9 Hypertensive chronic kidney disease with stage 1 through stage 4 chronic kidney disease, or unspecified chronic kidney disease; N18.31 Chronic kidney disease, stage 3a; I25.10 Atherosclerotic heart disease of native coronary artery without angina pectoris
CPT/HCPCS: 36415; 80053; 80061; 83036; 84520

== ENCOUNTER 2025-05-20 08:44 | Outpatient (AMB) | payer MEDICARE, SELFPAY ==
--- NOTE | 2025-05-20 08:49 | A.OFFPC_ITS ---
Vital Signs 05/20/25 08:54 Height 5 ft 2 in Weight 217 lb BMI 39.7 BP 118/68 Blood Pressure Location Lt brachial Position Sitting Respiration 14 Pulse 67 Pulse Source Pulse Oximeter Temp 97.8 F Temp Source Oral Pulse Oximetry (%) 94 Oxygen Delivery Method Room Air Intake Visit Reasons: DIPAK [address] [facility] [address] Intake Note: New patient visit Brick Tender Required: No Allergies codeine (CODEINE) Allergy (Severe, Verified 05/20/25 08:53) UNKNOWN atorvastatin (From LIPITOR) Adverse Reaction (Intermediate, Verified 05/20/25 08:53) Muscle cramps doxycycline (DOXYCYCLINE) Adverse Reaction (Intermediate, Verified 05/20/25 08:53) Gastrointestinal Upset Tobacco use date assessed: 05/20/25 Dental Screening Dental Screen Date: 01/27/25 HPI HPI Comments History of Present Illness Details Sourav is a 84-year-old male with a past medical history of diabetes, CAD, CKD, hypertension, GERD, Barretts, colon polyps, BPH presenting for follow up Diabetes: On metformin 500mg daily daily. A1C 05/2025 6.6%. CKD followed by Dr Garcia. Last seen in October. His appt this month was rescheduled CV: On enalapril, metoprolol, pravastatin. BP is well controlled. Denies chest pain, dyspnea GI: On omeprazole 40mg daily. BPH: On tamsulosin 0.4mg daily. Following with dermatology q6 months Recent COVID infection. Seen at [facility] urgent care. Starting to feel better. Does not need further colonoscopy. Was following with [facility] GI ROS CONSTITUTIONAL: Denies weight loss, fever and chills. HEENT: Denies changes in vision and hearing. RESPIRATORY: Denies SOB and cough. CV: Denies palpitations and CP GI: Denies abdominal pain, nausea, vomiting and diarrhea. : Denies dysuria and urinary frequency. MSK: Denies new myalgia and joint pain. SKIN: Denies rash and pruritus. NEUROLOGICAL: Denies headache PSYCHIATRIC: Denies recent changes in mood. PHYSICAL EXAM: GENERAL: Alert and oriented x 3. NAD EYES: EOMI. Anicteric. HENT: Moist mucous membranes. No scleral icterus. No cervical lymphadenopathy. LUNGS: Clear to auscultation bilaterally. CARDIOVASCULAR: Regular rate and rhythm. No murmur. No JVD. ABDOMEN: Soft, non-tender +bs EXTREMITIES: No edema. Non-tender. SKIN: No rashes or lesions. Warm. NEUROLOGIC: No focal neurological deficits. CN II-XII grossly intact PSYCHIATRIC: Cooperative. Appropriate mood and affect [facility] Medical History Ear lesion Hyperlipidemia BPH (benign prostatic hyperplasia) Coronary disease Hypertension Surgical History History of colonoscopy (~06/11/17) History of surgical removal of skin lesion (~11/14/21) History of cataract surgery History of heart artery stent History of prostate surgery (~2011) Family History Father Lung cancer Sister Colon cancer Mother Cancer of kidney Social History Housing: House Patient Tobacco Use Status: Former Tobacco user e-Cigarette/Vaping Use: Former Use service: No Current occupational status: retired Cognitive needs: No Hearing needs: Yes (bilateral hearing aids) Vision needs: Yes (reading glasses) Questionnaire PHQ-9 Over the last 2 weeks, how often have you been bothered by any of the following problems? 1. Little interest or pleasure in doing things: not at all 2. Feeling down, depressed, or hopeless: not at all 3. Trouble falling or staying asleep, or sleeping too much: not at all 4. Feeling tired or having little energy: not at all 5. Poor appetite or overeating: not at all 6. Feeling bad about yourself - or that you are a failure or have let yourself or your family down: not at all 7. Trouble concentrating on things, such as reading the newspaper or watching television: not at all 8. Moving or speaking so slowly that other people could have noticed. Or the opposite - being so fidgety or restless that you have been moving around a lot more than usual: not at all 9. Thoughts that you would be better off or of hurting yourself in some way: not at all Total score: 0 Source: Developed by Drs. Brady Ross, Jalil Evans and colleagues, with an educational flip from [email or web address]. Thrive Questionnaire Date Thrive assessed: 05/20/25 I am a: Patient What is your living situation today?: I have a steady place to live THRIVE Score: 0 AUDIT C Alcohol Use Questionnaire (AUDIT-C) 1. How often do you have a drink containing alcohol?: Monthly or less 2. How many drinks containing alcohol do you have on a typical day when you are drinking?: 1 or 2 3. How often do you have six or more drinks on one occasion?: Never Total Score: 1 JOSE LUIS-7 AMB Questionnaire JOSE LUIS-7 Date JOSE LUIS - 7 assessed: 01/27/25 Source: Developed by Drs. Brady Ross, Jalil Evans and colleagues, with an educational flip from [email or web address]. Physical exam (Primary Care) Vital Signs: Last Vital Signs Temp 97.8 F 05/20/25 08:54 Pulse 67 05/20/25 08:54 Resp 14 05/20/25 08:54 BP 118/68 05/20/25 08:54 Pulse Ox 94 05/20/25 08:54 Oxygen Delivery Method Room Air 05/20/25 08:54 BMI result Body Mass Index 39.7 Tobacco/Smoking Status: Tobacco use Status Tobacco use date assessed 05/20/25 05/20/25 08:59 Patient Tobacco Use Status Former Tobacco user 05/20/25 08:52 e-Cigarette/Vaping Use Former Use 05/20/25 08:52 PHQ-9: PHQ-9 Score PHQ-9: Total score 0 05/20/25 09:13 Thrive Assessment: Date of Thrive Assessment Date Thrive assessed 05/20/25 05/20/25 08:52 Coding Level of Care Code Est Pt Level 4 (31356) Complex EM visit Add On G2211 Diagnoses Primary hypertension I10 Hypertension type: primary hypertension Hyperlipidemia, unspecified hyperlipidemia type E78.5 Hyperlipidemia type: unspecified Type 2 diabetes mellitus with diabetic microalbuminuria, 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; R80.9 Diabetes mellitus type: type 2 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 insulin use: without penitentiary use Diabetes mellitus complication status: with kidney complications Diabetes mellitus complication detail: with diabetic microalbuminuria Stage 3a chronic kidney disease N18.31 Chronic kidney disease stage 3 subtype: stage 3a (GFR 45-59) Assessment & Plan Assessment & Plan (1) Hypertension: Code(s): I10 - Essential (primary) hypertension Category: Medical Qualifiers: Hypertension type: primary hypertension Qualified Code(s): I10 - Essential (primary) hypertension (2) Hyperlipidemia: Code(s): E78.5 - Hyperlipidemia, unspecified Category: Medical Qualifiers: Hyperlipidemia type: unspecified Qualified Code(s): E78.5 - Hyperlipidemia, unspecified (3) Diabetes mellitus: Code(s): E11.9 - Type 2 diabetes mellitus without complications Category: Medical Qualifiers: Diabetes mellitus type: type 2 Diabetes mellitus penitentiary insulin use: without penitentiary use Diabetes mellitus complication status: with kidney complications Diabetes mellitus complication detail: with diabetic microalbuminuria Qualified Code(s): E11.29 - Type 2 diabetes mellitus with other diabetic kidney complication; R80.9 - Proteinuria, unspecified (4) CKD (chronic kidney disease) stage 3, GFR 30-59 ml/min: Code(s): N18.30 - Chronic kidney disease, stage 3 unspecified Category: Medical Qualifiers: Chronic kidney disease stage 3 subtype: stage 3a (GFR 45-59) Qualified Code(s): N18.31 - Chronic kidney disease, stage 3a Plan DM well controlled on current medication. continue annual eye exams HTN controlled CKD stable-follow up nephrology Orders: Orders Hemoglobin A1c 3 Months E11.29 - Type 2 diabetes mellitus with other diabetic kidney complication, E78.5 - Hyperlipidemia, unspecified, I10 - Essential (primary) hypertension, N18.31 - Chronic kidney disease, stage 3a, R80.9 - Proteinuria, unspecified Comprehensive Met. Panel 3 Months E11.29 - Type 2 diabetes mellitus with other diabetic kidney complication, E78.5 - Hyperlipidemia, unspecified, I10 - Essential (primary) hypertension, N18.31 - Chronic kidney disease, stage 3a, R80.9 - Proteinuria, unspecified Prostate Specific Antigen Today N40.0 - Benign prostatic hyperplasia without lower urinary tract symptoms Microalbumin, Random (w Creat) 3 Months E11.29 - Type 2 diabetes mellitus with other diabetic kidney complication, E78.5 - Hyperlipidemia, unspecified, I10 - Essential (primary) hypertension, N18.31 - Chronic kidney disease, stage 3a, R80.9 - Proteinuria, unspecified
[2025-05-20 08:54] VITALS: BP 118/68; PULSE 67; RESP 14; TEMP 36.6; O2SAT 94; BMI 39.7
--- OUTSIDE RECORDS SUMMARY | 2025-05-20 09:36 | XMS_ITS | Clinical Summary ---
Author Organization [facility] Address [address] [place] [address] Phone Care Team Providers Care Insurance Premium Auditor Name Role Phone Sameer Banegas MD Primary Care Provider [phone] Allergies Active Allergy Reactions Criticality Noted Date [...] mouth every night 12/10/2013 Active Krill Oil (Kathleen-3) 500 MG capsule Take 1 capsule by [...] patient's age to complete this topic Insurance [facility] Medicare [facility] Medicare Care Teams Insurance Premium Auditor Relationship Specialty Start Date End Date Sameer Banegas MD [address] [place] [address] [id number] [place], [place] PCP - General 10/02/20
--- OUTSIDE RECORDS SUMMARY | 2025-05-20 09:36 | XMS_ITS | Clinical Summary ---
Author Organization [facility] Address [address] [facility] [address] [place] [address] Phone Care Team Providers Care Education Trainer Name Role Phone Jeannette Rice MD Primary Care Provider Allergies Active Allergy Reactions Criticality Noted Date Comments Atorvastatin Other (See Comments) 07/17/2022 Other Reaction(s): Muscle involved muscle aches Codeine Hallucinations,Other (See Comments) High 02/28/2021 pt states that codeine makes me feel like I am dying Doxycycline Other (See Comments) 02/28/2021 Medications chgqq-ou-9-dha- pcf-fnhupyw-xat [id number] mg Cap Take 1 capsule by mouth [...] MEDICARE SUPPLEMENT MEDICARE PART A & B [facility] MEDICARE SUPPLEMENT MEDICARE PART A & B MEDICARE SUPPLEMENT MEDICARE PART A & B MEDICARE PART A & B MEDICARE SUPPLEMENT MEDICARE PART A & B MEDICARE SUPPLEMENT MEDICARE PART A & B MEDICARE SUPPLEMENT Member Subscriber Plan / Payer (Ef fective 2024-Present) Name:Sourav Santamaria Relation to Subscriber:Self Name:Sourav Santamaria Payer ID:[id number] (NAIC) Group ID:Not on file Type:HMO Address: [place] [id number] Care Teams Education Trainer Relationship Specialty Start Date End Date Jeannette Rice MD PCP - General Internal Medicine 12/21/24 Additional Source Comments The information contained in this document represents components of the legal health record. It is not the complete legal health record.[facility]
--- OUTSIDE RECORDS SUMMARY | 2025-05-20 09:37 | XMS_ITS | Patient Health Record ---
Author Organization [facility] Address [address] [place] [address] Care Team Providers Care Director Translational Name Role Phone Bassam (RETIRED) Sameer PIERRE Primary Care Provide r Brady Poon Unavailable [phone] Allergies Allergen (clinical drug ingredient) Drug/Non Drug [...] Problem Status W/U Status Risk Notes Problem 80799158 Epigastric abdom inal pain (R10.13) Active confirmed Problem 556048848 Encounter for screening for malignant neoplasm of colon (Z12.11) Active confirmed Problem 641054880 History of adenomatous polyp of colon (Z86.010) Active confirmed Problem 649165597 Gastroesophageal reflux disease without esophagitis (K21.9) Active confirmed Problem 717249257 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) Active confirmed Problem 856656639 Family history o f colon cancer (Z80.0) Active confirmed Problem 054132935 Long-term use of aspirin therapy (Z79.82) Active confirmed Problem 410085573 Abnormal CT scan , stomach (R93.3) Active confirmed Problem 64471516 Gallbladder slud ge (K82.8) Active confirmed Plan [...] OF [place] [address] [place] [address] [phone] [id number] PAULINO ALEXANDER Self - patient is the insured [facility] SUPPLEMENTAL PLAN [address] [place], [place] [id number] PAULINO ALEXANDER Self - patient is the insured Medical (General) History Medical History History ICD Code GERD and Sorensen's esophagus --last EGD in 11/2011--minimal area of Sorensen's--no dysplasia, no esophagitis, small to moderatre-sized hiatal hernia Tubular adenomas--2007; hyperplastic tomasz yp removed in 11/2011--diverticulosis Hyperlipidemia BPH History of DVT and pulmonary embolus Denies DM,CVA,Lung disease,renal disease [place] 2013----1 stent placed---no problems since Colonoscopy 05/2017 with removal of small tubular adenomas U/S 01/2020 with some sludge in the GB, b ut no inflammation CT of abdomen in 01/2020 with question of some proximal gastric wall thickening and gallbladder wall thickening Surgical History Surgery Date(Month/Year) Prostate surgery Arm surgery Oral surgery
== END 2025-05-20 09:25 | disposition home or self-care (01) ==
LOC: HO.HMCFM 08:44
PROVIDERS: PCP Internal Medicine; Visit Provider Internal Medicine
DX: I12.9 Hypertensive chronic kidney disease with stage 1 through stage 4 chronic kidney disease, or unspecified chronic kidney disease (principal); E11.29 Type 2 diabetes mellitus with other diabetic kidney complication; N18.31 Chronic kidney disease, stage 3a; E78.5 Hyperlipidemia, unspecified; R80.9 Proteinuria, unspecified

== ENCOUNTER → 2025-05-20 08:44 | Outpatient (BNVA) | payer MEDICARE, SELFPAY | PROVIDERS: PCP Internal Medicine; Visit Provider Internal Medicine | DX: E78.5 Hyperlipidemia, unspecified (principal); R80.9 Proteinuria, unspecified; I12.9 Hypertensive chronic kidney disease with stage 1 through stage 4 chronic kidney disease, or unspecified chronic kidney disease; E11.22 Type 2 diabetes mellitus with diabetic chronic kidney disease; N18.31 Chronic kidney disease, stage 3a | CPT/HCPCS: 99212 ==

== ENCOUNTER 2025-05-25 14:29 | Outpatient (AMB) | payer MEDICARE, SELFPAY ==
--- NOTE | 2025-05-25 14:31 | HO.NEPHOV ---
Vital Signs 05/25/25 14:39 Height 5 ft 10 in Weight 215 lb 4 oz BMI 30.9 BP 132/70 Blood Pressure Location Lt brachial Position Sitting Pulse 73 Pulse Source Pulse Oximeter Pulse Oximetry (%) 93 Oxygen Delivery Method Room Air Intake Visit Reasons: Check up-Conf Obgyn Specialist Required: No Accompanied by: Self / Same As Patient Allergies codeine (CODEINE) Allergy (Severe, Verified 05/25/25 14:39) UNKNOWN atorvastatin (From LIPITOR) Adverse Reaction (Intermediate, Verified 05/25/25 14:39) Muscle cramps doxycycline (DOXYCYCLINE) Adverse Reaction (Intermediate, Verified 05/25/25 14:39) Gastrointestinal Upset HPI Comments Details: Sourav is a 84-year-old delightful gentleman whom had the pleasure of seeing in follow-up of his chronic kidney disease. He has lost some weight. He is tolerating all his current medications including enalapril. He is on metformin and his blood sugar is better. He denies nausea vomiting, diarrhea, chest pain, shortness of breath, pedal edema, dizziness or orthostatic symptoms. He tries to maintain good hydration. All other systems were reviewed and were negative [facility] Medical History Ear lesion Hyperlipidemia BPH (benign prostatic hyperplasia) Coronary disease Hypertension Surgical History History of colonoscopy (~06/11/17) History of surgical removal of skin lesion (~11/14/21) History of cataract surgery History of heart artery stent History of prostate surgery (~2011) Family History Father Lung cancer Sister Colon cancer Mother Cancer of kidney Social History Housing: House Patient Tobacco Use Status: Former Tobacco user e-Cigarette/Vaping Use: Former Use service: No Current occupational status: retired Cognitive needs: No Hearing needs: Yes (bilateral hearing aids) Vision needs: Yes (reading glasses) Review of Systems Const All systems reviewed & are unremarkable except as noted in HPI and below Physical Exam Vital Signs: Last Vital Signs Pulse 73 05/25/25 14:39 BP 132/70 05/25/25 14:39 Pulse Ox 93 05/25/25 14:39 Oxygen Delivery Method Room Air 05/25/25 14:39 BMI result Body Mass Index 30.9 Const General: comfortable and no acute distress Orientation/consciousness: patient oriented x3 HEENT Head: Yes normocephalic Mouth: Normal oral and palatal mucosa present Eyes EOM: EOMs intact bilaterally Neck Neck: Yes supple Resp Auscultation: clear to auscultation bilaterally Cardio Jugular venous distension: no JVD Rate: regular rate GI Palpation (GI): Soft to palpation Auscultation: normal bowel sounds General: Yes no CVA tenderness Back/Spine/Pelvis Back: no CVA tenderness Skin General skin exam: no rashes or lesions noted Neuro General: patient oriented x3 and moves all extremities Extrem General: Yes no pedal edema Results Reviewed Nephrology Results: Hgb, (14.0-18.0) 15.7 g/dl 10/25/24 WBC, (4.8-10.8) 8.0 X10*3/uL 10/25/24 Plt Count, (160-400) 142 X10*3/uL L 10/25/24 Sodium, (135-145) 139 mmol/L 05/18/25 Potassium, (3.3-5.1) 4.3 mmol/L 05/18/25 Chloride, (96-108) 104 mmol/L 05/18/25 Carbon Dioxide, (22-29) 29 mmol/L 05/18/25 BUN, (9-16) 18 mg/dL H 05/18/25 Creatinine, (0.5-1.4) 1.47 mg/dL H 05/18/25 Calcium, (8.4-10.2) 9.2 mg/dL 05/18/25 Phosphorus, (2.7-4.5) 2.1 mg/dL L 10/25/24 PTH Intact, (8.7-77.1) 129.6 pg/mL H 10/25/24 Urine Protein, (Neg-Trace) Negative mg/dL 10/26/24 Urine Creatinine 71.46 mg/dL 10/26/24 Protein/Creatinin Ratio, (<0.2) 0.14 10/26/24 Assessment & Plan Assessment & Plan (1) Hypertension: Code(s): I10 - Essential (primary) hypertension Category: Medical Qualifiers: Hypertension type: primary hypertension Qualified Code(s): I10 - Essential (primary) hypertension (2) CKD (chronic kidney disease) stage 3, GFR 30-59 ml/min: Code(s): N18.30 - Chronic kidney disease, stage 3 unspecified Category: Medical Qualifiers: Chronic kidney disease stage 3 subtype: stage 3a (GFR 45-59) Qualified Code(s): N18.31 - Chronic kidney disease, stage 3a Plan Zeferino has chronic kidney disease stage 3 with stable renal function. He has 1 small kidney. He likely has renal artery stenosis on that side given coronary artery disease and history of peripheral arterial disease. He has no significant protein in the urine. His blood pressure is at goal. He is tolerating current dose of enalapril. I shall back off on it if his serum creatinine rises. He avoids nonsteroidal anti-inflammatory medications and maintain good hydration. We could consider him for a low-dose Farxiga given history of coronary artery disease, CKD and diabetes after D/Cing metformin. I did not make any medication changes today. No prescription refills were requested. All questions answered. Follow-up given Orders: Orders Electrolytes 3 Months I10 - Essential (primary) hypertension, N18.31 - Chronic kidney disease, stage 3a Blood Urea Nitrogen 3 Months I10 - Essential (primary) hypertension, N18.31 - Chronic kidney disease, stage 3a Creatinine 3 Months I10 - Essential (primary) hypertension, N18.31 - Chronic kidney disease, stage 3a Coding Level of Care Code Est Pt Level 4 (28312) Diagnoses Primary hypertension I10 Hypertension type: primary hypertension Stage 3a chronic kidney disease N18.31 Chronic kidney disease stage 3 subtype: stage 3a (GFR 45-59)
[2025-05-25 14:39] VITALS: BP 132/70; PULSE 73; O2SAT 93; BMI 30.9
--- OUTSIDE RECORDS SUMMARY | 2025-05-25 16:46 | XMS_ITS | Clinical Summary ---
Author Organization [facility] Address [address] [place] [address] Phone Care Team Providers Care Rotary Swaging Machine Operator Name Role Phone Sameer Banegas MD Primary Care Provider [phone] Allergies Active Allergy Reactions Criticality Noted Date [...] mouth every night 12/10/2013 Active Krill Oil (Meridian-3) 500 MG capsule Take 1 capsule by [...] patient's age to complete this topic Insurance [facility] Medicare [facility] Medicare Care Teams Rotary Swaging Machine Operator Relationship Specialty Start Date End Date Sameer Banegas MD [address] [place] [address] [address] [place], [place] PCP - General 10/02/20
--- OUTSIDE RECORDS SUMMARY | 2025-05-25 16:46 | XMS_ITS | Clinical Summary ---
Author Organization [facility] Address [address] [facility] [address] [place] [address] Phone Care Team Providers Care Adoption Worker Name Role Phone Jeannette Rice MD Primary Care Provider Allergies Active Allergy Reactions Criticality Noted Date Comments Atorvastatin Other (See Comments) 07/17/2022 Other Reaction(s): Muscle involved muscle aches Codeine Hallucinations,Other (See Comments) High 02/28/2021 pt states that codeine makes me feel like I am dying Doxycycline Other (See Comments) 02/28/2021 Medications qpsvi-my-8-dha- mwe-ctqbpta-vsm [id number] mg Cap Take 1 capsule by mouth [...] VACCINE (1 - 1-dose 75+ series) 2017 INFLUENZA VACCINE (#1) 2025 COVID-19 VACCINE (1 - 2023-2 5 season) 2025 HEPATITIS A VACCINES Aged Out No long [...] PART A & B MEDICARE SUPPLEMENT MEDICARE SUPPLEMENT MEDICARE PART A & B MEDICARE SUPPLEMENT MEDICARE PART A & B MEDICARE SUPPLEMENT Care Teams Adoption Worker Relationship Specialty Start Date End Date Jeannette Rice MD PCP - General Internal Medicine 12/21/24 Additional Source Comments The information contained in this document represents components of the legal health record. It is not the complete legal health record.[facility]
--- OUTSIDE RECORDS SUMMARY | 2025-05-25 16:47 | XMS_ITS | Patient Health Record ---
Author Organization [facility] Address [address] [place] [address] Care Team Providers Care Manager Tax Name Role Phone Bassam (RETIRED) Sameer PIERRE Primary Care Provide r Brady Poon Unavailable [phone] Allergies Allergen (clinical drug ingredient) Drug/Non Drug [...] Problem Status W/U Status Risk Notes Problem 99206301 Epigastric abdom inal pain (R10.13) Active confirmed Problem 458560834 Encounter for screening for malignant neoplasm of colon (Z12.11) Active confirmed Problem 922430643 History of adenomatous polyp of colon (Z86.010) Active confirmed Problem 231538325 Gastroesophageal reflux disease without esophagitis (K21.9) Active confirmed Problem 768981154 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) Active confirmed Problem 868536682 Family history o f colon cancer (Z80.0) Active confirmed Problem 851968418 Long-term use of aspirin therapy (Z79.82) Active confirmed Problem 527141394 Abnormal CT scan , stomach (R93.3) Active confirmed Problem 34360402 Gallbladder slud ge (K82.8) Active confirmed Plan [...] OF [place] [address] [place] [address] [id number] PAULINO ALEXANDER Self - patient is the insured [facility] SUPPLEMENTAL PLAN [address] [place], [place] [address] [phone] [id number] PAULINO ALEXANDER Self - patient is the insured Medical (General) History Medical History History ICD Code GERD and Sorensen's esophagus --last EGD in 11/2011--minimal area of Sorensen's--no dysplasia, no esophagitis, small to moderatre-sized hiatal hernia Tubular adenomas--2007; hyperplastic tomasz yp removed in 11/2011--diverticulosis Hyperlipidemia BPH History of DVT and pulmonary embolus Denies DM,CVA,Lung disease,renal disease [place] 2013----1 stent placed---no problems since Colonoscopy 05/2017 with removal of small tubular adenomas U/S 01/2020 with some sludge in the GB, b ut no inflammation CT of abdomen in 01/2020 with question of some proximal gastric wall thickening and gallbladder wall thickening Surgical History Surgery Date(Month/Year) Prostate surgery Arm surgery Oral surgery
== END 2025-05-25 15:11 | disposition home or self-care (01) ==
LOC: HO.HKA 14:30
PROVIDERS: PCP Internal Medicine; Visit Provider Internal Medicine Nephrology
DX: I10 Essential (primary) hypertension (principal); N18.31 Chronic kidney disease, stage 3a
CPT/HCPCS: 99214

== ENCOUNTER → 2025-05-25 14:29 | Outpatient (BNVA) | payer MEDICARE, SELFPAY | PROVIDERS: PCP Internal Medicine; Visit Provider Internal Medicine Nephrology | DX: I12.9 Hypertensive chronic kidney disease with stage 1 through stage 4 chronic kidney disease, or unspecified chronic kidney disease (principal); N18.31 Chronic kidney disease, stage 3a | CPT/HCPCS: 99212 ==

== ENCOUNTER 2025-08-29 13:36 | Outpatient (REF) | payer MEDICARE, SELFPAY ==
[2025-08-29 18:53] LABS: Alanine Aminotransferase 17 U/L (0-40); Albumin Level 4.4 g/dL (3.5-5.0); Alkaline Phosphatase 76 U/L (39-117); Anion Gap 15 (12-20); Aspartate Amino Transferase 23 U/L (5-37); Blood Urea Nitrogen 23 mg/dL (9-16); Calcium 9.7 mg/dL (8.4-10.2); Carbon Dioxide 28 mmol/L (22-29); Chloride 101 mmol/L (96-108); Estimated Glomerular Filt Rate 43; Potassium 4.8 mmol/L (3.3-5.1); Sodium 139 mmol/L (135-145); Total Protein 6.9 g/dL (6.5-8.0)
[2025-08-29 19:11] LABS: Prostate Specific Antigen 0.64 ng/mL (<0.05-4.0)
--- OUTSIDE RECORDS SUMMARY | 2025-08-29 22:21 | XMS_ITS | Clinical Summary ---
Author Organization Formerly [facility] Address [address] [facility] [address] [place] [phone] Phone Care Team Providers Care Operations Expert Name Role Phone Jeannette Rice MD Primary Care Provider Allergies Active Allergy Reactions Criticality Noted Date Comments Atorvastatin Other (See Comments) 07/17/2022 Other Reaction(s): Muscle involved muscle aches Codeine Hallucinations,Other (See Comments) High 02/28/2021 pt states that codeine makes me feel like I am dying Doxycycline Other (See Comments) 02/28/2021 Medications [id number]- [id number] mg Cap Take 1 capsule by mouth [...] VACCINE (#1) 2025 COVID-19 VACCINE (1 - 2024-2 6 season) 2025 HEPATITIS A VACCINES Aged Out [...] MEDICARE SUPPLEMENT MEDICARE PART A & B [facility] MEDICARE SUPPLEMENT MEDICARE PART A & B MEDICARE PART A & B MEDICARE PART A & B MEDICARE SUPPLEMENT MEDICARE PART A & B MEDICARE PART A & B [id number] [place] [address] MEDICARE SUPPLEMENT MEDICARE PART A & B [facility] MEDICARE SUPPLEMENT MEDICARE PART A & B [facility] MEDICARE SUPPLEMENT Care Teams Operations Expert Relationship Specialty Start Date End Date Jeannette Rice MD PCP - General Internal Medicine 12/21/24 Additional Source Comments The information contained in this document represents components of the legal health record. It is not the complete legal health record.Formerly [facility]
== END 2025-08-29 13:37 | disposition home or self-care (01) ==
LOC: HO.WFDLDS 13:36
PROVIDERS: Internal Medicine; Visit Provider Internal Medicine Nephrology
DX: Z12.5 Encounter for screening for malignant neoplasm of prostate (principal); I12.9 Hypertensive chronic kidney disease with stage 1 through stage 4 chronic kidney disease, or unspecified chronic kidney disease; E11.22 Type 2 diabetes mellitus with diabetic chronic kidney disease; N18.31 Chronic kidney disease, stage 3a; E11.29 Type 2 diabetes mellitus with other diabetic kidney complication; N40.0 Benign prostatic hyperplasia without lower urinary tract symptoms; R80.9 Proteinuria, unspecified; E78.5 Hyperlipidemia, unspecified
CPT/HCPCS: 36415; 80053; 83036; 84153

== ENCOUNTER 2025-08-30 11:01 | Outpatient (REF) | payer MEDICARE, SELFPAY ==
[2025-08-30 12:00] LABS: Microalbum/Creatinine Ratio Ur 39.5 ug/mg cr (<30)
== END 2025-08-30 11:02 | disposition home or self-care (01) ==
LOC: HO.LNP 11:01
PROVIDERS: Visit Provider Internal Medicine
DX: I12.9 Hypertensive chronic kidney disease with stage 1 through stage 4 chronic kidney disease, or unspecified chronic kidney disease (principal); E11.22 Type 2 diabetes mellitus with diabetic chronic kidney disease; N18.31 Chronic kidney disease, stage 3a; E11.29 Type 2 diabetes mellitus with other diabetic kidney complication; R80.9 Proteinuria, unspecified
CPT/HCPCS: 82043; 82570

== ENCOUNTER 2025-08-31 10:19 | Outpatient (AMB) | payer MEDICARE, SELFPAY ==
--- NOTE | 2025-08-31 10:22 | HO.NEPHOV_ITS ---
Vital Signs 08/31/25 10:23 Height 5 ft 10 in Weight 215 lb 2 oz BMI 30.9 BP 120/70 Blood Pressure Location Rt brachial Position Sitting Pulse 76 Pulse Source Pulse Oximeter Pulse Oximetry (%) 95 Oxygen Delivery Method Room Air Intake Visit Reasons: 3mon f/u w/labs-[employer] Syrup [employer] Cook Required: No Accompanied by: Self / Same As Patient Allergies codeine (CODEINE) Allergy (Severe, Verified 08/31/25 10:23) UNKNOWN atorvastatin (From LIPITOR) Adverse Reaction (Intermediate, Verified 08/31/25 10:23) Muscle cramps doxycycline (DOXYCYCLINE) Adverse Reaction (Intermediate, Verified 08/31/25 10:23) Gastrointestinal Upset HPI Comments Details: Sourav is a 85-year-old delightful gentleman whom had the pleasure of seeing in follow-up of his chronic kidney disease. He is tolerating all his current medications including enalapril. He is on metformin and his blood sugar is better. He denies nausea vomiting, diarrhea, chest pain, shortness of breath, pedal edema, dizziness or orthostatic symptoms. He tries to maintain good hydration. All other systems were reviewed and were negative [facility] Medical History Ear lesion Hyperlipidemia BPH (benign prostatic hyperplasia) Coronary disease Hypertension Surgical History History of colonoscopy (~06/11/17) History of surgical removal of skin lesion (~11/14/21) History of cataract surgery History of heart artery stent History of prostate surgery (~2011) Family History Father Lung cancer Sister Colon cancer Mother Cancer of kidney Social History Housing: House Patient Tobacco Use Status: Former Tobacco user e-Cigarette/Vaping Use: Former Use service: No Current occupational status: retired Cognitive needs: No Hearing needs: Yes (bilateral hearing aids) Vision needs: Yes (reading glasses) Review of Systems Const All systems reviewed & are unremarkable except as noted in HPI and below Physical Exam Vital Signs: Last Vital Signs Pulse 76 08/31/25 10:23 BP 120/70 08/31/25 10:23 Pulse Ox 95 08/31/25 10:23 Oxygen Delivery Method Room Air 08/31/25 10:23 BMI result Body Mass Index 30.9 Const General: comfortable and no acute distress Orientation/consciousness: patient oriented x3 HEENT Head: Yes normocephalic Mouth: Normal oral and palatal mucosa present Eyes EOM: EOMs intact bilaterally Neck Neck: Yes supple Resp Auscultation: clear to auscultation bilaterally Cardio Jugular venous distension: no JVD Rate: regular rate GI Palpation (GI): Soft to palpation Auscultation: normal bowel sounds General: Yes no CVA tenderness Back/Spine/Pelvis Back: no CVA tenderness Skin General skin exam: no rashes or lesions noted Neuro General: patient oriented x3 and moves all extremities Extrem General: Yes no pedal edema Results Reviewed Nephrology Results: Sodium, (135-145) 139 mmol/L 08/29/25 Potassium, (3.3-5.1) 4.8 mmol/L 08/29/25 Chloride, (96-108) 101 mmol/L 08/29/25 Carbon Dioxide, (22-29) 28 mmol/L 08/29/25 BUN, (9-16) 23 mg/dL H 08/29/25 Creatinine, (0.5-1.4) 1.55 mg/dL H 08/29/25 Calcium, (8.4-10.2) 9.7 mg/dL 08/29/25 Urine Creatinine 106.30 mg/dL 08/30/25 Assessment & Plan Assessment & Plan (1) Hypertension: Code(s): I10 - Essential (primary) hypertension Category: Medical Qualifiers: Hypertension type: primary hypertension Qualified Code(s): I10 - Essential (primary) hypertension (2) CKD (chronic kidney disease) stage 3, GFR 30-59 ml/min: Code(s): N18.30 - Chronic kidney disease, stage 3 unspecified Category: Medical Qualifiers: Chronic kidney disease stage 3 subtype: stage 3a (GFR 45-59) Qualified Code(s): N18.31 - Chronic kidney disease, stage 3a Plan Bill has chronic kidney disease stage 3 with stable renal function. He has 1 small kidney. He likely has renal artery stenosis on that side given coronary artery disease and history of peripheral arterial disease. He has no significant protein in the urine. His blood pressure is at goal. He is tolerating current dose of enalapril. I shall back off on it if his serum creatinine rises. He avoids nonsteroidal anti-inflammatory medications and maintain good hydration. We could consider him for a low-dose Farxiga given h istory of coronary artery disease, CKD and diabetes after D/Cing metformin. I did not make any medication changes today. No prescription refills were requested. All questions answered. Follow-up given Orders: Orders Blood Urea Nitrogen 3 Months I10 - Essential (primary) hypertension, N18.31 - Chronic kidney disease, stage 3a Electrolytes 3 Months I10 - Essential (primary) hypertension, N18.31 - Chronic kidney disease, stage 3a Creatinine 3 Months I10 - Essential (primary) hypertension, N18.31 - Chronic kidney disease, stage 3a Coding Level of Care Code Est Pt Level 4 (62524) Diagnoses Primary hypertension I10 Hypertension type: primary hypertension Stage 3a chronic kidney disease N18.31 Chronic kidney disease stage 3 subtype: stage 3a (GFR 45-59)
[2025-08-31 10:23] VITALS: BP 120/70; PULSE 76; O2SAT 95; BMI 30.9
== END 2025-08-31 10:42 | disposition home or self-care (01) ==
LOC: HO.HKA 10:20
PROVIDERS: PCP Internal Medicine; Visit Provider Internal Medicine Nephrology
DX: I10 Essential (primary) hypertension (principal); N18.31 Chronic kidney disease, stage 3a
CPT/HCPCS: 99214

== ENCOUNTER → 2025-08-31 10:19 | Outpatient (BNVA) | payer MEDICARE, SELFPAY | PROVIDERS: PCP Internal Medicine; Visit Provider Internal Medicine Nephrology | DX: I10 Essential (primary) hypertension (principal); N18.31 Chronic kidney disease, stage 3a | CPT/HCPCS: 99212 ==